=== PATIENT | female | born 1930 | race Caucasian/White ===

== ENCOUNTER → 2016-12-23 | Outpatient (CLI) | payer MEDICARE, BC ==
[2016-12-23 10:16] LABS: CHOLESTEROL 171.23 mg/dL (0-200); Direct HDL 65 mg/dL (>40); TRIGLYCERIDES 96 mg/dL (<150)
[2016-12-23 10:27] LABS: DIRECT LDL 73 mg/dL (<100)
== END ==
LOC: OD 08:40
PROVIDERS: ATTEND Family Medicine Geriatric Medicine
DX: E78.5 Hyperlipidemia, unspecified (principal); E53.9 Vitamin B deficiency, unspecified
CPT/HCPCS: 36415; 80061; 82306; 82607

== ENCOUNTER → 2017-06-27 | Outpatient (CLI) | payer MEDICARE, BC ==
[2017-06-27 10:06] LABS: ABSOLUTE EOSINOPHILS # (AUTO) 0.2 10^3/uL (0.0-0.6); ABSOLUTE LYMPHOCYTES (AUTO) 1.3 10^3/uL (0.5-4.7); ABSOLUTE MONOCYTES (AUTO) 0.5 10^3/uL (0.1-1.4); ABSOLUTE NEUT (AUTO) 3.2 10^3/uL (1.7-8.2); BASOPHILS % (AUTO) 0.7 % (0-2); EOSINOPHILS % (AUTO) 3.8 % (0-6); HEMATOCRIT 43.2 % (36.0-47.0); HEMOGLOBIN 14.2 g/dL (12.0-15.5); HGB HCT DIFFERENCE -0.6; LYMPHOCYTES % (AUTO) 25.3 % (13-45); MEAN CORPUSCULAR HEMOGLOBIN 32.2 pg (27.0-33.4); MEAN CORPUSCULAR HGB CONC 32.8 g/dL (32.0-36.0); MEAN CORPUSCULAR VOLUME 98 fl (80-97); MONOCYTES % (AUTO) 8.8 % (3-13); RED BLOOD COUNT 4.42 10^6/uL (3.72-5.28); RED CELL DISTRIBUTION WIDTH 14.3 % (11.5-14.0); SEGMENTED NEUTROPHILS % (AUTO) 61.4 % (42-78); WHITE BLOOD COUNT 5.2 10^3/uL (4.0-10.5)
[2017-06-27 10:39] LABS: ALANINE AMINOTRANSFERASE 19 U/L (9-52); ALBUMIN 3.8 g/dL (3.5-5.0); ALKALINE PHOSPHATASE 72 U/L (38-126); ANION GAP 9 (5-19); ASPARTATE AMINO TRANSFERASE 21 U/L (14-36); BILIRUBIN,DIRECT 0.3 mg/dL (0.0-0.4); BILIRUBIN,TOTAL 0.5 mg/dL (0.2-1.3); BLOOD UREA NITROGEN 15 mg/dL (7-20); CALCIUM 9.4 mg/dL (8.4-10.2); CARBON DIOXIDE 30 mmol/L (22-30); CHLORIDE 105 mmol/L (98-107); CREATININE RESULT 0.83 mg/dL (0.52-1.25); GLUCOSE 90 mg/dL (75-110); POTASSIUM 4.7 mmol/L (3.6-5.0); SODIUM 143.9 mmol/L (137-145); TOTAL PROTEIN 6.4 g/dL (6.3-8.2)
== END ==
LOC: OD 08:49
PROVIDERS: ATTEND Family Medicine Geriatric Medicine
DX: E78.5 Hyperlipidemia, unspecified (principal); I10 Essential (primary) hypertension; J44.9 Chronic obstructive pulmonary disease, unspecified; E55.9 Vitamin D deficiency, unspecified; Z79.899 Other long term (current) drug therapy
CPT/HCPCS: 36415; 80053; 85025

== ENCOUNTER 2017-12-06 07:09 | Day surgery (SDC) | payer MEDICARE, BC ==
[2017-12-06] MEDS ORDERED: ONDANSETRON HCL INJ/PF 4 MG/2 ML SDV ONE (07:16)
[2017-12-06] MEDS ORDERED: GLYCOPYRROLATE INJ 0.4 MG/2 ML VIAL ONE (07:16)
[2017-12-06] MEDS ORDERED: FLUMAZENIL INJ 0.5 MG/5 ML VIAL ONE (07:17)
[2017-12-06] MEDS ORDERED: NALOXONE HCL INJ/PF 0.4 MG/1 ML SDV ONE (07:17)
[2017-12-06] MEDS ORDERED: EPINEPHRINE INJ 1 MG/10 ML DISP.SYRIN ONE (07:17)
[2017-12-06] MEDS ORDERED: GLUCAGON,HUMAN RECOMB 1 MG INJ ONE (07:17)
[2017-12-06 07:23] LABS: HEMATOCRIT 42.7 % (36.0-47.0); HEMOGLOBIN 14.4 g/dL (12.0-15.5); MEAN CORPUSCULAR HEMOGLOBIN 32.2 pg (27.0-33.4); MEAN CORPUSCULAR HGB CONC 33.7 g/dL (32.0-36.0); MEAN CORPUSCULAR VOLUME 96 fl (80-97); PLATELET COUNT 168 10^3/uL (150-450); RED BLOOD COUNT 4.46 10^6/uL (3.72-5.28); RED CELL DISTRIBUTION WIDTH 14.4 % (11.5-14.0)
[2017-12-06 07:43] LABS: ANION GAP 12 (5-19); BLOOD UREA NITROGEN 11 mg/dL (7-20); CALCIUM 8.6 mg/dL (8.4-10.2); CARBON DIOXIDE 25 mmol/L (22-30); CHLORIDE 105 mmol/L (98-107); GLUCOSE 93 mg/dL (75-110); POTASSIUM 4.2 mmol/L (3.6-5.0); SODIUM 141.8 mmol/L (137-145)
[2017-12-06] MEDS: MIDAZOLAM 2 MG/2 ML INJ ONE ×2 (09:40→09:45)
[2017-12-06] MEDS: FENTANYL CITRATE INJ/PF 100 MCG/2 ML AMPUL ONE ×2 (09:42→09:56)
--- NOTE | 2017-12-06 10:20 | Operative Report ---
Operative Report DATE OF SURGERY: 12/06/17 PREOPERATIVE DIAGNOSIS: Blood per rectum POSTOPERATIVE DIAGNOSIS: Diverticulosis of the colon. Internal hemorrhoids. OPERATION: Colonoscopy SURGEON: JOSE F MALLORY ANESTHESIA: GA TISSUE REMOVED OR ALTERED: None COMPLICATIONS: None ESTIMATED BLOOD LOSS: None INTRAOPERATIVE FINDINGS: Multiple large diverticuli throughout the colon. Especially the left colon. Prolapsing internal hemorrhoid. Very lax anal sphincter tone with evidence of partial rectal prolapse. PROCEDURE: Informed consent was obtained. Patient was brought to the endoscopy suite. IV sedation with Versed and fentanyl was administered. Digital rectal exam revealed no palpable perianal masses. However she had a very lax anal sphincter tone with a partial prolapse of her rectum along with a prolapsing internal hemorrhoid with no stigmata recent bleeding. Endoscope was passed via the patient's anus it was fed to the cecum. The bowel prep was good. Visualization was good. Patient had multiple large diverticuli throughout the colon especially the sigmoid and the left colon. Otherwise the colon appeared normal. The cecum, right colon, transverse colon, descending colon, sigmoid colon and the rectum had no polyps and no masses. Patient tolerated procedure well with no apparent complications. Assessment: Prolapsing internal hemorrhoid. Along with very lax anal sphincter tone with evidence of partial rectal prolapse. I will follow-up with the patient and make a referral to colorectal surgery for their input for treatment.
--- NOTE | 2017-12-06 10:21 | PDOC DISCHARGE SUMMARY ---
Discharge Summary (SDC) - Discharge Final Diagnosis: Internal hemorrhoids. Diverticulosis of the colon. Date of Surgery: 12/06/17 Discharge Date: 12/06/17 Condition: Good Treatment or Instructions: Colonoscopy. May discharge patient home when met discharge criteria. Follow- up with me next week. Referrals: KISHA FORBES MD [Primary Care Provider] - Discharge Diet: As Tolerated Discharge Activity: Activity As Tolerated Report the Following to Your Physician Immediately: Increase in Pain, Fever over 101 Degrees, Unusual Bleeding
[2017-12-06 11:11] VITALS: BP 142/60
== END 2017-12-06 11:05 | disposition home or self-care (01) ==
LOC: END 07:09
PROVIDERS: ATTEND Surgery
PROC: 0DJD8ZZ Inspection of Lower Intestinal Tract, Via Natural or Artificial Opening Endoscopic (ICD-10-PCS; principal; 2017-12-06 08:45)
DX: K64.8 Other hemorrhoids (principal); K57.30 Diverticulosis of large intestine without perforation or abscess without bleeding; K62.5 Hemorrhage of anus and rectum; K62.89 Other specified diseases of anus and rectum; I10 Essential (primary) hypertension; E78.00 Pure hypercholesterolemia, unspecified; Z79.899 Other long term (current) drug therapy
CPT/HCPCS: 45378; 36415; 85027; 80048; J2250; J3010; J0171; J1610; J2310; J2405; J3490

== ENCOUNTER → 2017-12-23 | Outpatient (CLI) | payer MEDICARE, BC ==
[2017-12-23 09:13] LABS: ABSOLUTE EOSINOPHILS # (AUTO) 0.1 10^3/uL (0.0-0.6); ABSOLUTE LYMPHOCYTES (AUTO) 1.3 10^3/uL (0.5-4.7); ABSOLUTE MONOCYTES (AUTO) 0.6 10^3/uL (0.1-1.4); BASOPHILS % (AUTO) 0.5 % (0-2); EOSINOPHILS % (AUTO) 2.4 % (0-6); HEMATOCRIT 44.9 % (36.0-47.0); HEMOGLOBIN 14.9 g/dL (12.0-15.5); LYMPHOCYTES % (AUTO) 21.3 % (13-45); MEAN CORPUSCULAR HEMOGLOBIN 31.9 pg (27.0-33.4); MEAN CORPUSCULAR HGB CONC 33.1 g/dL (32.0-36.0); MEAN CORPUSCULAR VOLUME 96 fl (80-97); MONOCYTES % (AUTO) 9.6 % (3-13); PLATELET COUNT 156 10^3/uL (150-450); RED BLOOD COUNT 4.67 10^6/uL (3.72-5.28); RED CELL DISTRIBUTION WIDTH 14.6 % (11.5-14.0); SEGMENTED NEUTROPHILS % (AUTO) 66.2 % (42-78); TOTAL CELLS COUNTED % (AUTO) 100 %
[2017-12-23 09:34] LABS: ALANINE AMINOTRANSFERASE 28 U/L (9-52); ALBUMIN 3.9 g/dL (3.5-5.0); ALKALINE PHOSPHATASE 71 U/L (38-126); ANION GAP 9 (5-19); ASPARTATE AMINO TRANSFERASE 22 U/L (14-36); BILIRUBIN,DIRECT 0.3 mg/dL (0.0-0.4); BILIRUBIN,TOTAL 0.3 mg/dL (0.2-1.3); BLOOD UREA NITROGEN 15 mg/dL (7-20); CALCIUM 9.6 mg/dL (8.4-10.2); CARBON DIOXIDE 28 mmol/L (22-30); CHLORIDE 110 mmol/L (98-107); CHOLESTEROL 155.76 mg/dL (0-200); GLUCOSE 92 mg/dL (75-110); SODIUM 146.7 mmol/L (137-145); TOTAL PROTEIN 6.7 g/dL (6.3-8.2); TRIGLYCERIDES 90 mg/dL (<150)
[2017-12-23 09:36] LABS: POTASSIUM 5.3 mmol/L (3.6-5.0)
[2017-12-23 09:45] LABS: DIRECT LDL 71 mg/dL (<100)
== END ==
LOC: OD 08:40
PROVIDERS: ATTEND Family Medicine Geriatric Medicine
DX: I10 Essential (primary) hypertension (principal); E78.5 Hyperlipidemia, unspecified; J44.9 Chronic obstructive pulmonary disease, unspecified; Z79.899 Other long term (current) drug therapy
CPT/HCPCS: 36415; 80053; 80061; 85025

== ENCOUNTER 2018-05-09 15:48 | Inpatient (IN) | payer MEDICARE, BC ==
[2018-05-09] MEDS ORDERED: IPRATROPIUM/ALBUTEROL 0.5-2.5 MG/3 ML AMPUL NEB ONE ×2 (16:52→18:34)
--- NOTE | 2018-05-09 17:05 | ER Document Report ---
ED Medical Screen (RME) - General Chief Complaint: Congestion Stated Complaint: COLD/FLU SYMPTOMS DIRECT ADMIT Time Seen by Provider: 05/09/18 16:50 Notes: Patient is here because her oxygen level was low at her doctor's office today. Her doctor recorded oxygen levels of 86-87%. Patient is not routinely on oxygen. She has had a cough for the past week or so. It started out with clear phlegm that went to green that went to brown phlegm. She is not on any oxygen at home. Does not use nebulizers nor any history of COPD or asthma. Has not had any chest pain. No fevers. TRAVEL OUTSIDE OF THE [place] IN LAST 30 DAYS: No - Related Data Allergies/Adverse Reactions: No Known Allergies Allergy (Verified 05/09/18 15:49) Past Medical History - Social History Chew tobacco use (# tins/day): No Frequency of alcohol use: None Drug Abuse: None - Past Medical History Cardiac Medical History: Reports: Hx Hypercholesterolemia, Hx Hypertension Denies: Hx Coronary Artery Disease, Hx Heart Attack Pulmonary Medical History: Reports: Hx COPD, Hx Pneumonia Denies: Hx Asthma, Hx Bronchitis, Hx Tuberculosis Neurological Medical History: Denies: Hx Cerebrovascular Accident, Hx Seizures Renal/ Medical History: Denies: Hx Peritoneal Dialysis Musculoskeltal Medical History: Reports Hx Arthritis - general Psychiatric Medical History: Denies: Hx Depression Past Surgical History: Reports: Hx Appendectomy, Hx Section - x2 - Immunizations Hx Diphtheria, Pertussis, Tetanus Vaccination: Yes Influenza Administration Date for 07/2017 - 12/2017 Season: 08/17/17 Physical Exam - Vital signs Vitals: Temp Pulse Resp BP Pulse Ox 98.4 F 90 24 H 147/75 H 90 L 05/09/18 16:09 05/09/18 16:09 05/09/18 16:09 05/09/18 16:09 05/09/18 16:09 Course - Vital Signs Vital signs: Temp Pulse Resp BP Pulse Ox 98.4 F 90 24 H 147/75 H 90 L 05/09/18 16:09 05/09/18 16:09 05/09/18 16:09 05/09/18 16:09 05/09/18 16:09 Doctor's Discharge - Discharge Referrals: REGIS MOLINA MD [Primary Care Provider] - Follow up as needed
--- NOTE | 2018-05-09 17:29 | RADIOLOGY REPORT (SQ) ---
EXAM DESCRIPTION: CHEST 2 VIEWS COMPLETED DATE/TIME: 05/09/2018 5:05 pm REASON FOR STUDY: Shortness of breath COMPARISON: 12/17/2013 NUMBER OF VIEWS: One view. TECHNIQUE: Single frontal radiographic view of the chest acquired. LIMITATIONS: None. FINDINGS: LUNGS AND PLEURA: No acute opacities, masses or pneumothorax. No pleural effusion. Simila r chronic interstitial changes and emphysema. MEDIASTINUM AND HILAR STRUCTURES: Stable. HEART AND VASCULAR STRUCTURES: Heart normal in size. Normal vasculature. BONES: No acute findings. HARDWARE: None in the chest. OTHER: No other significant finding. IMPRESSION: NO ACUTE RADIOGRAPHIC FINDING IN THE CHEST. TECHNICAL DOCUMENTATION: JOB ID: [id number] [id number] 2010 [employer]- All Rights Reserved Reading location - IP/workstation name: [employer]
[2018-05-09 17:35] LABS: ABSOLUTE EOSINOPHILS # (AUTO) 0.1 10^3/uL (0.0-0.6); ABSOLUTE LYMPHOCYTES (AUTO) 1.5 10^3/uL (0.5-4.7); ABSOLUTE MONOCYTES (AUTO) 1.1 10^3/uL (0.1-1.4); ABSOLUTE NEUT (AUTO) 7.5 10^3/uL (1.7-8.2); BASOPHILS % (AUTO) 0.3 % (0-2); HEMATOCRIT 45.1 % (36.0-47.0); HEMOGLOBIN 15.1 g/dL (12.0-15.5); LYMPHOCYTES % (AUTO) 14.7 % (13-45); MEAN CORPUSCULAR HEMOGLOBIN 31.6 pg (27.0-33.4); MEAN CORPUSCULAR HGB CONC 33.4 g/dL (32.0-36.0); MEAN CORPUSCULAR VOLUME 95 fl (80-97); MONOCYTES % (AUTO) 10.4 % (3-13); PLATELET COUNT 160 10^3/uL (150-450); RED BLOOD COUNT 4.77 10^6/uL (3.72-5.28); RED CELL DISTRIBUTION WIDTH 14.2 % (11.5-14.0); SEGMENTED NEUTROPHILS % (AUTO) 73.6 % (42-78); TOTAL CELLS COUNTED % (AUTO) 100 %; WHITE BLOOD COUNT 10.2 10^3/uL (4.0-10.5)
[2018-05-09 17:45] LABS: APPEARANCE,URINE CLOUDY; BILIRUBIN,URINE NEGATIVE (NEGATIVE); COLOR,URINE YELLOW; GLUCOSE, URINE NEGATIVE (NEGATIVE); KETONES,URINE TRACE mg/dL (NEGATIVE); LEUKOCYTE ESTERASE,URINE LARGE (NEGATIVE); NITRITE,URINE NEGATIVE (NEGATIVE); PROTEIN,URINE NEGATIVE (NEGATIVE); URINE SPECIFIC GRAVITY 1.013; UROBILINOGEN,URINE NEGATIVE mg/dL (<2.0)
[2018-05-09 18:05] LABS: ALANINE AMINOTRANSFERASE 21 U/L (9-52); ALBUMIN 3.9 g/dL (3.5-5.0); ALKALINE PHOSPHATASE 97 U/L (38-126); ANION GAP 14 (5-19); ASPARTATE AMINO TRANSFERASE 28 U/L (14-36); BILIRUBIN,DIRECT 0.4 mg/dL (0.0-0.4); BILIRUBIN,TOTAL 0.7 mg/dL (0.2-1.3); BLOOD UREA NITROGEN 23 mg/dL (7-20); CARBON DIOXIDE 23 mmol/L (22-30); CHLORIDE 105 mmol/L (98-107); GLUCOSE 96 mg/dL (75-110); POTASSIUM 4.2 mmol/L (3.6-5.0); SODIUM 142.1 mmol/L (137-145); TOTAL PROTEIN 7.7 g/dL (6.3-8.2)
[2018-05-09 18:17] LABS: CREATINE KINASE MB 1.18 ng/mL (<4.55); NT PRO BNP 177 pg/mL (<450)
[2018-05-09 18:18] LABS: TROPONIN I < 0.012 ng/mL
[2018-05-09] MEDS ORDERED: METHYLPREDNISOLONE INJ 125 MG/2 ML SDV IM ONE (18:34)
[2018-05-09] MEDS ORDERED: ALBUTEROL SULFATE 0.083% NEB 2.5 MG/3 ML AMPUL NEB ONE (18:34)
--- NOTE | 2018-05-09 18:38 | ER Document Report ---
ED Respiratory Problem - General Mode of Arrival: Ambulatory Information source: Patient TRAVEL OUTSIDE OF THE [place] IN LAST 30 DAYS: No <SHEY BRYSON - Last Filed: 05/09/18 18:50> <MIRIAM REYES - Last Filed: 05/09/18 20:45> - General Chief Complaint: Congestion Stated Complaint: COLD/FLU SYMPTOMS DIRECT ADMIT Time Seen by Provider: 05/09/18 16:50 Notes: Patient is an 87 year old female with a history of COPD, high cholesterol, HTN was sent to the emergency from her PCP's, Dr. Strong, office for low oxygen rate. Patient states she was seen there and found to haven an oxygen rate of 86 percent. Patient was given a DuoNeb which brought her oxygen rate to 87 percent and was sent to the emergency department. Patient states she has had a productive cough with sputum for the last 2 weeks. She also complains of decreased appetite. She denies chest pain, fevers, hemoptysis, or recent steroid or antibiotic use. Patient states she uses an inhaler twice daily. (SHEY BRYSON) - Related Data Allergies/Adverse Reactions: No Known Allergies Allergy (Verified 05/09/18 15:49) Past Medical History - General Information source: Patient - Social History Smoking Status: Former Smoker Chew tobacco use (# tins/day): No Frequency of alcohol use: None Drug Abuse: None Family History: Reviewed & Not Pertinent Patient has suicidal ideation: No Patient has homicidal ideation: No - Past Medical History Cardiac Medical History: Reports: Hx Hypercholesterolemia, Hx Hypertension Pulmonary Medical History: Reports: Hx COPD, Hx Pneumonia Musculoskeletal Medical History: Reports Hx Arthritis - general Past Surgical History: Reports: Hx Appendectomy, Hx Section - x2 - Immunizations Hx Diphtheria, Pertussis, Tetanus Vaccination: Yes Hx Pneumococcal Vaccination: 10/17/11 <SHEY BRYSON - Last Filed: 05/09/18 18:50> Review of Systems - Review of Systems Constitutional: No symptoms reported. denies: Fever EENT: No symptoms reported Cardiovascular: No symptoms reported. denies: Chest pain Respiratory: See HPI, Cough, Sputum Gastrointestinal: See HPI, Poor appetite Genitourinary: No symptoms reported Female Genitourinary: No symptoms reported Musculoskeletal: No symptoms reported Skin: No symptoms reported Hematologic/Lymphatic: No symptoms reported Neurological/Psychological: No symptoms reported -: Yes All other systems reviewed and negative <SHEY BRYSON - Last Filed: 05/09/18 18:50> Physical Exam <SHEY BRYSON - Last Filed: 05/09/18 18:50> - Vital signs Interpretation: Hypoxic, Tachypneic <MIRIAM REYES - Last Filed: 05/09/18 20:45> - Vital signs Vitals: Temp Pulse Resp BP Pulse Ox 98.4 F 90 24 H 147/75 H 90 L 05/09/18 16:09 05/09/18 16:09 05/09/18 16:09 05/09/18 16:09 05/09/18 16:09 - Notes Notes: GENERAL: Alert, interacts well. Mild respiratory distress. HEAD: Normocephalic, atraumatic. EYES: Pupils equal, round, and reactive to light. Extraocular movements intact. ENT: Oral mucosa moist, tongue midline. NECK: Full range of motion. Supple. Trachea midline. LUNGS: Mild respiratory distress. Mild tachypnea. Diffuse expiratory wheezes, inspiratory rhonchi. Wet cough. HEART: Regular rate and rhythm. No murmurs, gallops, or rubs. ABDOMEN: Soft, non-tender. Non-distended. Bowel sounds present in all 4 quadrants. EXTREMITIES: Moves all 4 extremities spontaneously. No edema, radial and dorsalis pedis pulses 2/4 bilaterally. No cyanosis. NEUROLOGICAL: Alert and oriented x3. Normal speech. PSYCH: Normal affect, normal mood. SKIN: Warm, dry, normal turgor. No rashes or lesions noted. (SHEY BRYSON) Course - Laboratory Result Diagrams: 05/09/18 17:15 05/09/18 17:15 <SHEY BRYSON - Last Filed: 05/09/18 18:50> - Laboratory Result Diagrams: 05/09/18 17:15 05/09/18 17:15 <MIRIAM REYES - Last Filed: 05/09/18 20:45> - Re-evaluation Re-evalutation: 05/09/18 20:22 CBC unremarkable, CMP shows slightly elevated BUN otherwise unremarkable, cardiac enzymes negative, urinalysis shows trace ketones and large leukocyte esterase but she has no urinary tract symptoms infection symptoms right now symptoms of urinary tract infection at this time. Chest x-ray is negative. Patient was given 3 breathing treatments and IV steroids, she is still quite wheezy on reexamination, she was ambulated through the emergency department and after approximately 15 feet her oxygen saturation went down to 88% on room air. Due to this the patient will be admitted to the hospitalist service, she was discussed with Dr. Kay who accepted the patient to her service inpatient status on telemetry (MIRIAM REYES) - Vital Signs Vital signs: Temp Pulse Resp BP Pulse Ox 98.4 F 90 24 H 147/75 H 90 L 05/09/18 16:09 05/09/18 16:09 05/09/18 16:09 05/09/18 16:09 05/09/18 16:09 - Laboratory Laboratory results interpreted by me: 05/09/18 05/09/18 05/09/18 17:15 17:15 17:15 RDW 14.2 H BUN 23 H Est GFR (Non-Af Amer) 58 L Urine Ketones TRACE H Urine Blood SMALL H Ur Leukocyte Esterase LARGE H Discharge <SHEY BRYSON - Last Filed: 05/09/18 18:50> - Discharge Admitting Provider: Hospitalist - Rahul Unit Admitted: Telemetry <MIRIAM REYES - Last Filed: 05/09/18 20:45> - Discharge Clinical Impression: COPD with acute exacerbation, Hypoxia Condition: Fair Disposition: ADMITTED INPATIENT Referrals: REGIS MOLINA MD [Primary Care Provider] - Follow up as needed Scribe Attestation: 05/09/18 20:45 I personally performed the services described in the documentation, reviewed and edited the documentation which was dictated to the scribe in my presence, and it accurately records my words and actions. (MIRIAM REYES) Scribe Documentation - Scribe Written by Jairo:: aJiro Valentin, 05/09/2018 18:46 acting as scribe for :: Bryson <SHEY BRYSON - Last Filed: 05/09/18 18:50>
[2018-05-09] MEDS ORDERED: ACETAMINOPHEN 650 MG SUPP.RECT PR PRN (20:51)
[2018-05-09] MEDS ORDERED: PROMETHAZINE HCL INJ 25 MG/1 ML VIAL IV PRN (20:51)
[2018-05-09] MEDS ORDERED: NORMAL SALINE 1000 ML 1,000 ML IV PRN (20:51)
[2018-05-09] MEDS ORDERED: MAG HYDROX/AL HYDROX/SIMETH SUSP 30 ML UDCUP PO PRN (20:51)
[2018-05-09] MEDS ORDERED: IPRATROPIUM/ALBUTEROL 0.5-2.5 MG/3 ML AMPUL NEB PRN (20:51)
--- NOTE | 2018-05-09 21:31 | PDOC H&P ---
History of Present Illness Admission Date/PCP: 05/09/18 20:54 REGIS MOLINA MD Patient complains of: Shortness of breath History of Present Illness: RADHA WASHINGTON is a 87 year old female with history of COPD not on home oxygen who has been feeling sick for 1 day, as per for 1 week, she does not report to me shortness of breath but he states that she was been having cough with sputum that she swallows, chest congestion and wheezing that has been progressing. Denies sore throat, runny nose, fever, chills, nausea, vomiting, abdominal pain, diarrhea or urinary symptoms. Patient has been feeling sick so she went to her primary care physician today who recalled that her oxygen saturation and was 8687% on room air. Complains of a weird sensation on her head. Patient uses inhaler at home twice in the morning and twice at night, denies using extra doses the last few days. Emergency department given nebulizer treatments and 125 mg of Solu-Medrol Past Medical History Cardiac Medical History: Reports: Hyperlipidema, Hypertension Denies: Coronary Artery Disease, Myocardial Infarction Pulmonary Medical History: Reports: Chronic Obstructive Pulmonary Disease (COPD) , Pneumonia Denies: Asthma, Bronchitis, Tuberculosis Neurological Medical History: Denies: Seizures Neurological History Note: Memory problems Musculoskeltal Medical History: Reports: Arthritis - general Psychiatric Medical History: Denies: Depression Hematology: Denies: Anemia Past Surgical History Past Surgical History: Reports: Appendectomy, Section - x2 Social History Lives with: Family Smoking Status: Former Smoker - Tells me she has smoked very few cigarettes and quit when she was 31 years old Frequency of Alcohol Use: None Hx Recreational Drug Use: No Hx Prescription Drug Abuse: No Family History Family History: Reviewed & Not Pertinent Parental Family History Reviewed: No Children Family History Reviewed: NA Sibling(s) Family History Reviewed.: NA Medication/Allergy Home Medications: Simvastatin 20 mg PO DAILY #30 tablet 12/19/13 Budesonide/Formoterol Fumarate [Symbicort 160-4.5 Mcg Inhaler] 10.2 gm IH DAILY 12/05/17 Cyanocobalamin (Vitamin B-12) [Vitamin B12] 2,500 mcg PO DAILY 12/05/17 Memantine HCl 10 mg PO BID 12/05/17 Losartan Potassium 100 mg PO DAILY 12/06/17 Allergies/Adverse Reactions: No Known Allergies Allergy (Verified 05/09/18 15:49) Review of Systems Review of Systems: As outlined in the HPI, all others negative Physical Exam Vital Signs: Temp Pulse Resp BP Pulse Ox 98.4 F 90 24 H 147/75 H 90 L 05/09/18 16:09 05/09/18 16:09 05/09/18 16:09 05/09/18 16:09 05/09/18 16:09 Additional comments: General appearance: Elderly, well-developed, well-nourished, alert and cooperative, and appears to be in no acute distress Head: Normocephalic Eyes: PEERL, EOMI, vision is grossly intact. Ears: External auditory canal and tympanic membranes clear, hearing grossly intact. Nose: No nasal discharge. Throat: Oral cavity and pharynx normal. No inflammation, swelling, exudate or lesions. Neck: Neck supple, nontender without lymphadenopathy, masses or thyromegaly. Cardiac: Normal S1 and S2. No S3, S4 or murmurs. Rhythm is regular. There is no peripheral edema, cyanosis or pallor. Extremities are warm and well perfused. Capillary refill is less than 2 seconds. No carotid bruits. Lungs: Bilateral decreased breath sounds, bibasilar crackles with expiratory wheezing and mild rhonchi. Not using accessory muscles. Abdomen: Positive bowel sounds. Soft. Nondistended, nontender. No guarding or rebound. No masses. No hepatosplenomegaly Extremities: No significant deformity or joint abnormality. No edema. Peripheral pulses intact. No varicosities. Neurological: Cranial nerves II through XII grossly intact. Strength and sensation symmetric and intact throughout. Reflexes 2+ throughout. Skin: Skin normal color, texture and turgor with no lesions or eruptions, warm and dry. Psychiatric: The mental examination revealed the patient was oriented to person , place, and time. The patient was able to demonstrate good judgment on recent , without hallucinations, abnormal affect or abnormal behaviors. Results Laboratory Results: 05/09/18 05/09/18 05/09/18 17:15 17:15 17:15 WBC 10.2 Hgb 15.1 Hct 45.1 MCV 95 MCH 31.6 MCHC 33.4 RDW 14.2 H Plt Count 160 Seg Neutrophils % 73.6 Lymphocytes % 14.7 Monocytes % 10.4 Eosinophils % 1.0 Basophils % 0.3 Absolute Neutrophils 7.5 Absolute Lymphocytes 1.5 Absolute Monocytes 1.1 Absolute Eosinophils 0.1 Absolute Basophils 0.0 Sodium 142.1 Potassium 4.2 Chloride 105 Carbon Dioxide 23 Anion Gap 14 BUN 23 H Creatinine 0.92 Est GFR ( Amer) > 60 Est GFR (Non-Af Amer) 58 L Glucose 96 Calcium 9.0 Total Bilirubin 0.7 Direct Bilirubin 0.4 AST 28 ALT 21 Alkaline Phosphatase 97 Total Protein 7.7 Albumin 3.9 Urine Color YELLOW Urine Appearance CLOUDY Urine pH 5.0 Ur Specific [place] 1.013 Urine Protein NEGATIVE Urine Glucose (UA) NEGATIVE Urine Ketones TRACE H Urine Blood SMALL H Urine Nitrite NEGATIVE Urine Bilirubin NEGATIVE Urine Urobilinogen NEGATIVE Ur Leukocyte Esterase LARGE H Urine WBC (Auto) >182 Urine RBC (Auto) 3 Urine Bacteria (Auto) TRACE Squamous Epi Cells Auto 6 U Non-Squamous Epis Auto 1 Urine Ascorbic Acid NEGATIVE Impressions: Chest X-Ray 05/09/18 16:53 IMPRESSION: NO ACUTE RADIOGRAPHIC FINDING IN THE CHEST. Assessment & Plan - Diagnosis (1) Acute respiratory failure with hypoxia Is this a current diagnosis for this admission?: Yes Plan: Patient arrived to her PCP her oxygen saturation was 8687% on room air, now has improved after 2l oxygen initiated. Patient is not on respiratory distress. Chest x-ray with no infiltrates (2) COPD with acute exacerbation Is this a current diagnosis for this admission?: Yes Plan: Patient with progressive respiratory symptoms and was seen by her PCP with hypoxic respiratory failure. We will treat the patient COPD exacerbation. IV azithromycin, IV steroids, RT consultation, nebulizer treatments as needed, close respiratory monitoring. (3) Benign essential hypertension Is this a current diagnosis for this admission?: Yes Plan: decently controlled, continue with home antihypertensive medications - Time Time Spent: 30 to 50 Minutes - Inpatient Certification Based on my medical assessment, after consideration of the patient's comorbidities, presenting symptoms, or acuity I expect that the services needed warrant INPATIENT care.: Yes I certify that my determination is in accordance with my understanding of Medicare's requirements for reasonable and necessary INPATIENT services [42 CFR 412.3e].: Yes Medical Necessity: Need For Continuous Telemetry Monitoring, Risk of Complication if Not Cared For in Hospital
[2018-05-09] MEDS: METHYLPREDNISOLONE INJ 125 MG/2 ML SDV IV SCH (22:53)
[2018-05-10] MEDS: METHYLPREDNISOLONE INJ 125 MG/2 ML SDV IV SCH ×3 (05:38→21:54)
[2018-05-10 05:57] LABS: ABSOLUTE LYMPHOCYTES (AUTO) 0.6 10^3/uL (0.5-4.7); ABSOLUTE MONOCYTES (AUTO) 0.2 10^3/uL (0.1-1.4); ABSOLUTE NEUT (AUTO) 6.6 10^3/uL (1.7-8.2); BASOPHILS % (AUTO) 0.1 % (0-2); HEMATOCRIT 40.2 % (36.0-47.0); HEMOGLOBIN 13.7 g/dL (12.0-15.5); LYMPHOCYTES % (AUTO) 7.8 % (13-45); MEAN CORPUSCULAR HEMOGLOBIN 32.1 pg (27.0-33.4); MEAN CORPUSCULAR HGB CONC 34.1 g/dL (32.0-36.0); MEAN CORPUSCULAR VOLUME 94 fl (80-97); MONOCYTES % (AUTO) 2.5 % (3-13); PLATELET COUNT 144 10^3/uL (150-450); RED BLOOD COUNT 4.28 10^6/uL (3.72-5.28); RED CELL DISTRIBUTION WIDTH 13.6 % (11.5-14.0); SEGMENTED NEUTROPHILS % (AUTO) 89.6 % (42-78); TOTAL CELLS COUNTED % (AUTO) 100 %; WHITE BLOOD COUNT 7.3 10^3/uL (4.0-10.5)
[2018-05-10 06:20] LABS: ANION GAP 12 (5-19); BLOOD UREA NITROGEN 19 mg/dL (7-20); CALCIUM 8.7 mg/dL (8.4-10.2); CARBON DIOXIDE 21 mmol/L (22-30); CHLORIDE 110 mmol/L (98-107); GLUCOSE 168 mg/dL (75-110); PHOSPHORUS 2.7 mg/dL (2.5-4.5); POTASSIUM 4.3 mmol/L (3.6-5.0); SODIUM 142.5 mmol/L (137-145)
[2018-05-10 07:30] LABS: ARTERIAL BLOOD BASE EXCESS -1.9 mmol/L; ARTERIAL BLOOD H2CO3 1.12 mmol/L (1.05-1.35); ARTERIAL BLOOD HCO3 22.4 mmol/L (20-26); ARTERIAL BLOOD O2 SATURATION 89.6 % (94-98); ARTERIAL BLOOD PCO2 37.1 mmHg (35-45); ARTERIAL BLOOD PO2 56.6 mmHg (80-100); ARTERIAL BLOOD TOTAL CO2 23.6 mmol/L (21-25)
[2018-05-10 07:40] LABS: ARTERIAL BLOOD FIO2 ROOM AIR
[2018-05-10] MEDS: ENOXAPARIN SODIUM INJ 30 MG/0.3 ML DISP.SYRIN SUBCUT SCH (09:57)
[2018-05-10] MEDS: AZITHROMYCIN 500 MG in DEXTROSE 5%-WATER 250 ML IV SCH (09:59)
--- NOTE | 2018-05-10 11:47 | PDOC PROGRESS REPORT ---
Subjective Progress Note for:: 05/10/18 Subjective:: Patient is seen today she was in the restroom she had a bowel movement she is still short of breath on exertion, cough intermittent chest tightness with wheezing denies any fever or chills. Case was discussed in detail with at the bedside. Reason For Visit: COPD EXACERBATION Physical Exam Vital Signs: Temp Pulse Resp BP Pulse Ox 98.4 F 88 20 140/71 H 94 05/10/18 07:30 05/10/18 07:30 05/10/18 07:30 05/10/18 07:30 05/10/18 07:30 Intake & Output 05/09/18 05/10/18 05/11/18 06:59 06:59 06:59 Intake Total 534 Balance 534 Weight 72.9 kg General appearance: PRESENT: no acute distress Head exam: PRESENT: atraumatic, normocephalic Eye exam: PRESENT: conjunctival injection Ear exam: PRESENT: normal external ear exam Mouth exam: PRESENT: moist Neck exam: PRESENT: full ROM Respiratory exam: PRESENT: prolonged expiratory phas, rhonchi, wheezes Cardiovascular exam: PRESENT: RRR Pulses: PRESENT: normal carotid pulses, normal dorsalis pedis pul GI/Abdominal exam: PRESENT: normal bowel sounds, soft. ABSENT: distended, guarding, mass, organolmegaly, rebound, tenderness Neurological exam: PRESENT: alert, awake, oriented to person, oriented to place , CN II-XII grossly intact Psychiatric exam: PRESENT: appropriate affect, normal mood. ABSENT: homicidal ideation, suicidal ideation Results Laboratory Results: 05/10/18 05:49 05/10/18 05:49 05/10/18 05/10/18 05/10/18 05:49 05:49 06:50 WBC 7.3 RBC 4.28 Hgb 13.7 Hct 40.2 MCV 94 MCH 32.1 MCHC 34.1 RDW 13.6 Plt Count 144 L Seg Neutrophils % 89.6 H Lymphocytes % 7.8 L Monocytes % 2.5 L Eosinophils % 0.0 Basophils % 0.1 Absolute Neutrophils 6.6 Absolute Lymphocytes 0.6 Absolute Monocytes 0.2 Absolute Eosinophils 0.0 Absolute Basophils 0.0 Carbonic Acid 1.12 HCO3/H2CO3 Ratio 20:1 ABG pH 7.40 ABG pCO2 37.1 ABG pO2 56.6 L ABG HCO3 22.4 ABG O2 Saturation 89.6 L ABG Base Excess -1.9 FiO2 ROOM AIR Sodium 142.5 Potassium 4.3 Chloride 110 H Carbon Dioxide 21 L Anion Gap 12 BUN 19 Creatinine 0.74 Est GFR ( Amer) > 60 Est GFR (Non-Af Amer) > 60 Glucose 168 H Calcium 8.7 Phosphorus 2.7 Magnesium 2.2 Impressions: Chest X-Ray 05/09/18 16:53 IMPRESSION: NO ACUTE RADIOGRAPHIC FINDING IN THE CHEST. Assessment & Plan - Diagnosis (1) COPD with acute exacerbation Is this a current diagnosis for this admission?: Yes Plan: Continue IV azithromycin, beta-2 agonist with nebulizer, incentive spirometry IV Solu-Medrol. (2) Benign essential hypertension Is this a current diagnosis for this admission?: Yes Plan: Continue on home antihypertensives. (3) Vascular dementia Is this a current diagnosis for this admission?: Yes Plan: Continue on Aricept patient is also receiving GI and DVT prophylaxis.
[2018-05-10] MEDS: BUDESONIDE/FORMOTEROL 160-4.5 MCG 60 PUFF/6 GM MDI IH SCH (21:53)
[2018-05-11] MEDS: METHYLPREDNISOLONE INJ 125 MG/2 ML SDV IV SCH (06:24)
[2018-05-11] MEDS: METHYLPREDNISOLONE INJ 40 MG/1 ML SDV IV SCH ×3 (09:53→21:05)
[2018-05-11] MEDS: BUDESONIDE/FORMOTEROL 160-4.5 MCG 60 PUFF/6 GM MDI IH SCH ×2 (09:53→21:04)
[2018-05-11] MEDS: CYANOCOBALAMIN (VITAMIN B-12) 1,000 MCG TABLET PO SCH (09:55)
[2018-05-11] MEDS: ENOXAPARIN SODIUM INJ 30 MG/0.3 ML DISP.SYRIN SUBCUT SCH (09:55)
[2018-05-11] MEDS: LOSARTAN POTASSIUM 50 MG TABLET PO SCH (09:55)
[2018-05-11] MEDS: AZITHROMYCIN 500 MG in DEXTROSE 5%-WATER 250 ML IV SCH (09:56)
--- NOTE | 2018-05-11 16:18 | PDOC PROGRESS REPORT ---
Subjective Progress Note for:: 05/11/18 Subjective:: Patient states to feeling better she is still short of breath doing conversation she is coughing with minimal phlegm she is afebrile no chest pain no nausea vomiting. Reason For Visit: COPD EXACERBATION Physical Exam Vital Signs: Temp Pulse Resp BP Pulse Ox 98.4 F 98 18 128/56 H 95 05/11/18 14:51 05/11/18 14:51 05/11/18 14:51 05/11/18 14:51 05/11/18 14:51 Intake & Output 05/10/18 05/11/18 05/12/18 06:59 06:59 06:59 Intake Total 534 1677 1450 Output Total 700 800 Balance 534 977 650 Weight 72.9 kg 73.2 kg General appearance: PRESENT: mild distress Head exam: PRESENT: atraumatic, normocephalic Eye exam: PRESENT: conjunctiva pink, EOMI, PERRLA. ABSENT: scleral icterus Ear exam: PRESENT: normal external ear exam Mouth exam: PRESENT: moist, tongue midline Neck exam: PRESENT: full ROM. ABSENT: carotid bruit, JVD, lymphadenopathy, thyromegaly Respiratory exam: PRESENT: wheezes Cardiovascular exam: PRESENT: RRR Pulses: PRESENT: normal carotid pulses Vascular exam: PRESENT: normal capillary refill GI/Abdominal exam: PRESENT: normal bowel sounds, soft. ABSENT: distended, guarding, mass, organolmegaly, rebound, tenderness Rectal exam: PRESENT: deferred Extremities exam: PRESENT: full ROM Musculoskeletal exam: PRESENT: ambulatory Neurological exam: PRESENT: alert, awake, oriented to person, oriented to place , oriented to situation, CN II-XII grossly intact. ABSENT: motor sensory deficit Psychiatric exam: PRESENT: appropriate affect, normal mood. ABSENT: homicidal ideation, suicidal ideation Results Laboratory Results: 05/10/18 05:49 05/10/18 05:49 Impressions: Chest X-Ray 05/09/18 16:53 IMPRESSION: NO ACUTE RADIOGRAPHIC FINDING IN THE CHEST. Assessment & Plan - Diagnosis (1) COPD with acute exacerbation Is this a current diagnosis for this admission?: Yes Plan: Decrease Solu-Medrol to 40 mg IV every 8 we will continue beta-2 agonist, IV antibiotics. (2) Benign essential hypertension Is this a current diagnosis for this admission?: Yes (3) Vascular dementia Is this a current diagnosis for this admission?: Yes
[2018-05-12] MEDS: METHYLPREDNISOLONE INJ 40 MG/1 ML SDV IV SCH ×3 (05:03→21:34)
[2018-05-12 08:24] LABS: ABSOLUTE LYMPHOCYTES (AUTO) 0.7 10^3/uL (0.5-4.7); ABSOLUTE MONOCYTES (AUTO) 0.3 10^3/uL (0.1-1.4); ABSOLUTE NEUT (AUTO) 10.8 10^3/uL (1.7-8.2); BASOPHILS % (AUTO) 0.2 % (0-2); HEMATOCRIT 42.7 % (36.0-47.0); HEMOGLOBIN 14.3 g/dL (12.0-15.5); LYMPHOCYTES % (AUTO) 5.9 % (13-45); MEAN CORPUSCULAR HEMOGLOBIN 31.5 pg (27.0-33.4); MEAN CORPUSCULAR HGB CONC 33.4 g/dL (32.0-36.0); MEAN CORPUSCULAR VOLUME 94 fl (80-97); MONOCYTES % (AUTO) 2.6 % (3-13); PLATELET COUNT 187 10^3/uL (150-450); RED BLOOD COUNT 4.53 10^6/uL (3.72-5.28); RED CELL DISTRIBUTION WIDTH 14.3 % (11.5-14.0); SEGMENTED NEUTROPHILS % (AUTO) 91.3 % (42-78); TOTAL CELLS COUNTED % (AUTO) 100 %; WHITE BLOOD COUNT 11.8 10^3/uL (4.0-10.5)
[2018-05-12 08:40] LABS: ANION GAP 10 (5-19); BLOOD UREA NITROGEN 20 mg/dL (7-20); CALCIUM 8.9 mg/dL (8.4-10.2); CARBON DIOXIDE 22 mmol/L (22-30); CHLORIDE 113 mmol/L (98-107); GLUCOSE 116 mg/dL (75-110); POTASSIUM 4.6 mmol/L (3.6-5.0); SODIUM 144.6 mmol/L (137-145)
--- NOTE | 2018-05-12 09:24 | PDOC PROGRESS REPORT ---
Subjective Progress Note for:: 05/12/18 Subjective:: Patient seen today having breakfast she is still on nasal oxygen though she is satting over 95%. She is afebrile, she looks comfortable she is still coughing with wheezing she has not done much physical exertion. She had a bowel movement yesterday she denies any other complaints. Reason For Visit: COPD EXACERBATION Physical Exam Vital Signs: Temp Pulse Resp BP Pulse Ox 97.6 F 70 16 143/67 H 95 05/12/18 07:00 05/12/18 07:00 05/12/18 07:00 05/12/18 07:00 05/12/18 07:00 Intake & Output 05/11/18 05/12/18 05/13/18 06:59 06:59 06:59 Intake Total 1677 2182 Output Total 700 1100 Balance 977 1082 Weight 73.2 kg 73.2 kg General appearance: PRESENT: no acute distress Head exam: PRESENT: atraumatic, normocephalic Eye exam: PRESENT: conjunctiva pink, EOMI, PERRLA. ABSENT: scleral icterus Ear exam: PRESENT: normal external ear exam Mouth exam: PRESENT: moist, tongue midline Respiratory exam: PRESENT: rhonchi, wheezes Cardiovascular exam: PRESENT: RRR. ABSENT: diastolic murmur, rubs, systolic murmur Pulses: PRESENT: normal dorsalis pedis pul, +2 pedal pulses bilateral Vascular exam: PRESENT: normal capillary refill GI/Abdominal exam: PRESENT: normal bowel sounds, soft. ABSENT: distended, guarding, mass, organolmegaly, rebound, tenderness Rectal exam: PRESENT: deferred Musculoskeletal exam: PRESENT: ambulatory Neurological exam: PRESENT: alert, awake, oriented to person, oriented to place , oriented to situation, reflexes normal, CN II-XII grossly intact Psychiatric exam: PRESENT: appropriate affect Skin exam: PRESENT: dry, intact, warm. ABSENT: cyanosis, rash Results Laboratory Results: 05/12/18 08:11 05/12/18 08:11 05/12/18 05/12/18 08:11 08:11 WBC 11.8 H RBC 4.53 Hgb 14.3 Hct 42.7 MCV 94 MCH 31.5 MCHC 33.4 RDW 14.3 H Plt Count 187 Seg Neutrophils % 91.3 H Lymphocytes % 5.9 L Monocytes % 2.6 L Eosinophils % 0.0 Basophils % 0.2 Absolute Neutrophils 10.8 H Absolute Lymphocytes 0.7 Absolute Monocytes 0.3 Absolute Eosinophils 0.0 Absolute Basophils 0.0 Sodium 144.6 Potassium 4.6 Chloride 113 H Carbon Dioxide 22 Anion Gap 10 BUN 20 Creatinine 0.63 Est GFR ( Amer) > 60 Est GFR (Non-Af Amer) > 60 Glucose 116 H Calcium 8.9 Impressions: Chest X-Ray 05/09/18 16:53 IMPRESSION: NO ACUTE RADIOGRAPHIC FINDING IN THE CHEST. Assessment & Plan - Diagnosis (1) COPD with acute exacerbation Is this a current diagnosis for this admission?: Yes Plan: Decrease Solu-Medrol to 40 mg IV every 8 we will continue beta-2 agonist, IV antibiotics. Advised again incentive spirometry and increase activity suspect will require another 24-48 hours before discharge (2) Benign essential hypertension Is this a current diagnosis for this admission?: Yes (3) Vascular dementia Is this a current diagnosis for this admission?: Yes (4) Acute respiratory failure with hypoxia Is this a current diagnosis for this admission?: Yes
[2018-05-12] MEDS: BUDESONIDE/FORMOTEROL 160-4.5 MCG 60 PUFF/6 GM MDI IH SCH ×2 (10:59→21:34)
[2018-05-12] MEDS: ENOXAPARIN SODIUM INJ 30 MG/0.3 ML DISP.SYRIN SUBCUT SCH (11:01)
[2018-05-12] MEDS: LOSARTAN POTASSIUM 50 MG TABLET PO SCH (11:03)
[2018-05-12] MEDS: CYANOCOBALAMIN (VITAMIN B-12) 1,000 MCG TABLET PO SCH (11:05)
[2018-05-12] MEDS: AZITHROMYCIN 500 MG in DEXTROSE 5%-WATER 250 ML IV SCH (12:36)
[2018-05-13] MEDS: METHYLPREDNISOLONE INJ 40 MG/1 ML SDV IV SCH ×3 (05:02→21:35)
[2018-05-13] MEDS: CYANOCOBALAMIN (VITAMIN B-12) 1,000 MCG TABLET PO SCH (10:38)
[2018-05-13] MEDS: LOSARTAN POTASSIUM 50 MG TABLET PO SCH (10:38)
[2018-05-13] MEDS: ENOXAPARIN SODIUM INJ 30 MG/0.3 ML DISP.SYRIN SUBCUT SCH (10:38)
[2018-05-13] MEDS: BUDESONIDE/FORMOTEROL 160-4.5 MCG 60 PUFF/6 GM MDI IH SCH ×2 (10:40→21:34)
[2018-05-13] MEDS: AZITHROMYCIN 500 MG in DEXTROSE 5%-WATER 250 ML IV SCH (10:40)
[2018-05-14] MEDS: METHYLPREDNISOLONE INJ 40 MG/1 ML SDV IV SCH ×3 (05:05→21:46)
[2018-05-14] MEDS: CYANOCOBALAMIN (VITAMIN B-12) 1,000 MCG TABLET PO SCH (10:33)
[2018-05-14] MEDS: LOSARTAN POTASSIUM 50 MG TABLET PO SCH (10:33)
[2018-05-14] MEDS: BUDESONIDE/FORMOTEROL 160-4.5 MCG 60 PUFF/6 GM MDI IH SCH ×2 (10:36→21:46)
[2018-05-14] MEDS: ENOXAPARIN SODIUM INJ 30 MG/0.3 ML DISP.SYRIN SUBCUT SCH (10:36)
[2018-05-14] MEDS: AZITHROMYCIN 500 MG in DEXTROSE 5%-WATER 250 ML IV SCH (10:38)
[2018-05-15] MEDS: METHYLPREDNISOLONE INJ 40 MG/1 ML SDV IV SCH ×3 (06:04→21:35)
[2018-05-15] MEDS: ENOXAPARIN SODIUM INJ 30 MG/0.3 ML DISP.SYRIN SUBCUT SCH (09:51)
[2018-05-15] MEDS: CYANOCOBALAMIN (VITAMIN B-12) 1,000 MCG TABLET PO SCH (09:51)
[2018-05-15] MEDS: LOSARTAN POTASSIUM 50 MG TABLET PO SCH (09:51)
[2018-05-15] MEDS: BUDESONIDE/FORMOTEROL 160-4.5 MCG 60 PUFF/6 GM MDI IH SCH ×2 (09:51→21:36)
[2018-05-15] MEDS: GUAIFENESIN 600 MG TABLET.SA PO SCH ×2 (09:52→21:32)
[2018-05-15] MEDS: LEVOFLOXACIN 500 MG/D5W RTU 500 MG/100 ML RTUPB IV SCH (10:41)
[2018-05-15 11:13] LABS: ABSOLUTE LYMPHOCYTES (AUTO) 0.7 10^3/uL (0.5-4.7); ABSOLUTE MONOCYTES (AUTO) 0.3 10^3/uL (0.1-1.4); ABSOLUTE NEUT (AUTO) 9.2 10^3/uL (1.7-8.2); HEMATOCRIT 45.4 % (36.0-47.0); HEMOGLOBIN 15.1 g/dL (12.0-15.5); LYMPHOCYTES % (AUTO) 6.9 % (13-45); MEAN CORPUSCULAR HEMOGLOBIN 31.3 pg (27.0-33.4); MEAN CORPUSCULAR HGB CONC 33.2 g/dL (32.0-36.0); MEAN CORPUSCULAR VOLUME 94 fl (80-97); MONOCYTES % (AUTO) 2.5 % (3-13); PLATELET COUNT 247 10^3/uL (150-450); RED BLOOD COUNT 4.82 10^6/uL (3.72-5.28); RED CELL DISTRIBUTION WIDTH 14.2 % (11.5-14.0); SEGMENTED NEUTROPHILS % (AUTO) 90.6 % (42-78); TOTAL CELLS COUNTED % (AUTO) 100 %; WHITE BLOOD COUNT 10.2 10^3/uL (4.0-10.5)
[2018-05-16] MEDS: METHYLPREDNISOLONE INJ 40 MG/1 ML SDV IV SCH (05:49)
[2018-05-16] MEDS: LEVOFLOXACIN 500 MG/D5W RTU 500 MG/100 ML RTUPB IV SCH (09:29)
[2018-05-16] MEDS: CYANOCOBALAMIN (VITAMIN B-12) 1,000 MCG TABLET PO SCH (09:30)
[2018-05-16] MEDS: GUAIFENESIN 600 MG TABLET.SA PO SCH (09:30)
[2018-05-16] MEDS: LOSARTAN POTASSIUM 50 MG TABLET PO SCH (09:30)
[2018-05-16] MEDS: BUDESONIDE/FORMOTEROL 160-4.5 MCG 60 PUFF/6 GM MDI IH SCH (09:36)
[2018-05-16] MEDS: ENOXAPARIN SODIUM INJ 30 MG/0.3 ML DISP.SYRIN SUBCUT SCH (09:37)
[2018-05-16 10:59] VITALS: BP 146/75
--- NOTE | 2018-05-16 11:44 | PDOC PROGRESS REPORT ---
Subjective Progress Note for:: 05/15/18 Subjective:: Patient is seen today she is afebrile she is still coughing, wheezing she denies chest pain nausea vomiting her last bowel movement was 48 hours ago she denies any abdominal pain or any other symptomatology. Reason For Visit: COPD EXACERBATION Physical Exam Vital Signs: Temp Pulse Resp BP Pulse Ox 98.4 F 57 L 16 146/75 H 96 05/16/18 10:57 05/16/18 10:57 05/16/18 10:57 05/16/18 10:57 05/16/18 10:57 Intake & Output 05/15/18 05/16/18 05/17/18 06:59 06:59 06:59 Intake Total 974 1342 Output Total 600 1000 Balance 374 342 Weight 73.1 kg 73 kg General appearance: PRESENT: no acute distress, well-developed, well-nourished Head exam: PRESENT: atraumatic, normocephalic Eye exam: PRESENT: conjunctiva pink, EOMI, PERRLA. ABSENT: scleral icterus Ear exam: PRESENT: normal external ear exam Mouth exam: PRESENT: moist, tongue midline Neck exam: PRESENT: full ROM. ABSENT: carotid bruit, JVD, lymphadenopathy, thyromegaly Respiratory exam: PRESENT: crackles, wheezes Cardiovascular exam: PRESENT: RRR. ABSENT: diastolic murmur, rubs, systolic murmur Pulses: PRESENT: normal dorsalis pedis pul, +2 pedal pulses bilateral Vascular exam: PRESENT: normal capillary refill GI/Abdominal exam: PRESENT: normal bowel sounds, soft. ABSENT: distended, guarding, mass, organolmegaly, rebound, tenderness Rectal exam: PRESENT: deferred Extremities exam: PRESENT: full ROM Musculoskeletal exam: PRESENT: ambulatory Neurological exam: PRESENT: alert, awake, oriented to person, oriented to place , reflexes normal, CN II-XII grossly intact, normal gait Psychiatric exam: PRESENT: appropriate affect, normal mood. ABSENT: homicidal ideation, suicidal ideation Results Laboratory Results: 05/15/18 09:25 05/12/18 08:11 05/14/18 10:45 Sputum Gram Stain - Final 05/14/18 10:45 Sputum Sputum Culture - Final Pseudomonas Aeruginosa Normal Amanda Impressions: Chest X-Ray 05/09/18 16:53 IMPRESSION: NO ACUTE RADIOGRAPHIC FINDING IN THE CHEST. Assessment & Plan - Diagnosis (1) COPD with acute exacerbation Is this a current diagnosis for this admission?: Yes Plan: Decrease Solu-Medrol to 40 mg IV every 8 continue on the beta-2 agonists, her sputum which grew gram-negative rods she is only getting IV azithromycin so we will discontinue and put her on Levaquin 500 p.o. daily we will also add Mucinex 600 twice daily (2) Benign essential hypertension Is this a current diagnosis for this admission?: Yes Plan: Continue on home antihypertensives. (3) Vascular dementia Is this a current diagnosis for this admission?: Yes Plan: Continue on Aricept patient is also receiving GI and DVT prophylaxis. (4) Acute respiratory failure with hypoxia Is this a current diagnosis for this admission?: Yes
--- NOTE | 2018-05-22 15:03 | PDOC DISCHARGE SUMMARY ---
General - Admit/Disc Date/PCP Admission Date/Primary Care Provider: 05/09/18 20:54 REGIS MOLINA MD Discharge Date: 05/16/18 - Discharge Diagnosis (1) COPD with acute exacerbation Is this a current diagnosis for this admission?: Yes (2) Benign essential hypertension Is this a current diagnosis for this admission?: Yes (3) Vascular dementia Is this a current diagnosis for this admission?: Yes (4) Acute respiratory failure with hypoxia Is this a current diagnosis for this admission?: Yes (5) Thrombocytopenia Is this a current diagnosis for this admission?: Yes - Additional Information Resuscitation Status: Full Code Discharge Diet: Cardiac Discharge Activity: Activity As Tolerated Prescriptions: Ipratropium/Albuterol Sulfate [Duoneb 3 ml Ampul] 3 ml NEB Q3H PRN #30 [email or web address] PRN Reason: Home Medications: Aspirin [Adult Low Dose Aspirin EC] 81 mg PO DAILY 05/10/18 Budesonide/Formoterol Fumarate [Symbicort HFA 160-4.5 mcg Inhaler 6 gm] 1 puff IH Q12 05/10/18 Ergocalciferol (Vitamin D2) [Drisdol 50,000 unit (1.25MG) Capsule] 50,000 unit PO CARDENAS 05/10/18 Losartan Potassium [Cozaar 100 mg Tablet] 100 mg PO DAILY 05/10/18 Memantine HCl [Namenda 10 mg Tablet] 10 mg PO BID 05/10/18 Simvastatin [Zocor 20 mg Tablet] 20 mg PO QPM 05/10/18 Ipratropium/Albuterol Sulfate [Duoneb 3 ml Ampul] 3 ml NEB Q3H PRN #30 [email or web address] 05/16/18 History of Present Illness History of Present Illness: RADHA WASHINGTON is a 87 year old female Hospital Course Hospital Course: She was admitted to the hospital with IV azithromycin, IV steroids, beta-2 agonist. She had blood cultures which were negative sputum cultures which were sent and essentially grew gram-negative rods 3+ polys 1+ epithelial gram- positive cocci. On her fourth to fifth day she was switched from IV azithromycin to IV Levaquin for better gram-negative coverage. Slowly she improved with less shortness of breath less wheezing less cough prior to discharge she was afebrile she was off oxygen with a saturation in the high 90s , she was ambulatory without any symptomatology and she was felt stable for discharge. Physical Exam Vital Signs: Temp Pulse Resp BP Pulse Ox 98.4 F 57 L 16 146/75 H 96 05/16/18 10:57 05/16/18 10:57 05/16/18 10:57 05/16/18 10:57 05/16/18 10:57 Intake & Output 05/15/18 05/16/18 05/17/18 06:59 06:59 06:59 Intake Total 974 1342 Output Total 600 1000 Balance 374 342 Weight 73.1 kg 73 kg General appearance: PRESENT: no acute distress, well-developed, well-nourished Head exam: PRESENT: atraumatic, normocephalic Eye exam: PRESENT: conjunctiva pink, EOMI, PERRLA. ABSENT: scleral icterus Ear exam: PRESENT: normal external ear exam Mouth exam: PRESENT: moist, tongue midline Neck exam: PRESENT: full ROM. ABSENT: carotid bruit, JVD, lymphadenopathy, thyromegaly Respiratory exam: PRESENT: decreased breath sounds, wheezes Cardiovascular exam: PRESENT: RRR. ABSENT: diastolic murmur, rubs, systolic murmur Pulses: PRESENT: normal dorsalis pedis pul, +2 pedal pulses bilateral Vascular exam: PRESENT: normal capillary refill GI/Abdominal exam: PRESENT: normal bowel sounds, soft. ABSENT: distended, guarding, mass, organolmegaly, rebound, tenderness Rectal exam: PRESENT: deferred Extremities exam: PRESENT: full ROM Musculoskeletal exam: PRESENT: ambulatory Neurological exam: PRESENT: alert, altered, awake, oriented to person, oriented to place, reflexes normal, CN II-XII grossly intact, normal gait Psychiatric exam: PRESENT: appropriate affect, normal mood. ABSENT: homicidal ideation, suicidal ideation Skin exam: PRESENT: dry, intact, warm. ABSENT: cyanosis, rash Results Laboratory Results: 05/15/18 09:25 05/12/18 08:11 05/14/18 10:45 Sputum Gram Stain - Final 05/14/18 10:45 Sputum Sputum Culture - Final Pseudomonas Aeruginosa Normal Amanda Impressions: Chest X-Ray 05/09/18 16:53 IMPRESSION: NO ACUTE RADIOGRAPHIC FINDING IN THE CHEST. Qualifiers - * PATIENT BEING DISCHARGED WITH ANY OF THE FOLLOWING DIAGNOSIS: No VTE patient discharged on overlapping Therapy?: Yes Stroke Pt being discharged on Anti-thrombolytic therapy?: Yes Stroke Pt being discharged on Anti-coagulation therapy?: Yes Stroke Pt being discharged on Statins?: Yes OK Pt being discharged on Aspirin therapy?: Yes OK Pt being discharged on Statins?: Yes Plan Discharge Plan: Patient's med reconciliation was done, she will be given a prescription for Levaquin 500 p.o. daily for 7 days, prednisone 40 mg p.o. daily for 7 days, prescription was left in the chart for nebulizer and prescription for DuoNeb solution 3 mL's 3 times daily. She was given instructions on deep breathing and incentive spirometry with her at bedside. With regards to the thrombocytopenia she will be seen in 7 days at which time we will check for platelet counts at that time. Case was discussed with nursing. Time Spent: Less than 30 Minutes
== END 2018-05-16 12:00 | disposition home or self-care (01) | DRG 190 ==
LOC: ER 15:48 → EH 20:54 → 4W 05-10 05:11 → 5 05-11 15:17
PROVIDERS: ADMIT Internal Medicine; ATTEND Internal Medicine
DX: J44.1 Chronic obstructive pulmonary disease with (acute) exacerbation (principal); J96.01 Acute respiratory failure with hypoxia; E78.00 Pure hypercholesterolemia, unspecified; I10 Essential (primary) hypertension; M15.9 Polyosteoarthritis, unspecified; F01.50 Vascular dementia, unspecified severity, without behavioral disturbance, psychotic disturbance, mood disturbance, and anxiety; D69.6 Thrombocytopenia, unspecified; B96.5 Pseudomonas (aeruginosa) (mallei) (pseudomallei) as the cause of diseases classified elsewhere; Z87.891 Personal history of nicotine dependence; Z79.899 Other long term (current) drug therapy
CPT/HCPCS: 36415; 71046; 80048; 80053; 81001; 82553; 82803; 83735; 83880; 84100; 84484; 85025; 87070; 87077; 87086; 87186; 87205; 94640; 94799; 99284; J0456; J1650; J1956; J2920; J2930; J3490; J7030; J7060; J7620

== ENCOUNTER → 2018-11-28 | Outpatient (CLI) | payer MEDICARE, BC ==
[2018-11-28 11:15] LABS: TRIGLYCERIDES 89 mg/dL (<150)
[2018-11-28 11:26] LABS: DIRECT LDL 82 mg/dL (<100)
== END ==
LOC: OD 10:19
PROVIDERS: ATTEND Internal Medicine
DX: E78.5 Hyperlipidemia, unspecified (principal); E53.8 Deficiency of other specified B group vitamins
CPT/HCPCS: 36415; 80061; 82306; 82607

== ENCOUNTER 2019-02-21 14:46 | Inpatient (IN) | payer MEDICARE, BC ==
[2019-02-21] MEDS ORDERED: ACETAMINOPHEN 325 MG TABLET PO PRN (15:10)
--- NOTE | 2019-02-21 16:07 | RADIOLOGY REPORT (SQ) ---
EXAM DESCRIPTION: CHEST SINGLE VIEW COMPLETED DATE/TIME: 02/21/2019 3:55 pm REASON FOR STUDY: PNA COMPARISON: 05/09/2018 EXAM PARAMETERS: NUMBER OF VIEWS: One view. TECHNIQUE: Single frontal radiographic view of the chest acquired. RADIATION DOSE: NA LIMITATIONS: None. FINDINGS: LUNGS AND PLEURA: No opacities, masses or pneumothorax. No pleural effusion. MEDIASTINUM AND HILAR STRUCTURES: No masses. Contour normal. HEART AND VASCULAR STRUCTURES: Heart normal in size. Normal vasculature. BONES: No acute findings. HARDWARE: None in the chest. OTHER: No other significant finding. IMPRESSION: NO ACUTE RADIOGRAPHIC FINDING IN THE CHEST. TECHNICAL DOCUMENTATION: JOB ID: [id number] [email or web address] Rights Reserved Reading location - IP/workstation name: [email or web address]
[2019-02-21 16:12] LABS: ARTERIAL BLOOD BASE EXCESS 2.1 mmol/L; ARTERIAL BLOOD FIO2 ROOMAIR; ARTERIAL BLOOD H2CO3 1.06 mmol/L (1.05-1.35); ARTERIAL BLOOD HCO3 25.3 mmol/L (20-24); ARTERIAL BLOOD O2 SATURATION 92.7 % (94-98); ARTERIAL BLOOD PCO2 35.1 mmHg (35-45); ARTERIAL BLOOD PH 7.48 (7.35-7.45); ARTERIAL BLOOD PO2 59.9 mmHg (80-100); ARTERIAL BLOOD TOTAL CO2 26.3 mmol/L (21-25)
--- NOTE | 2019-02-21 16:17 | PDOC H&P ---
History of Present Illness Admission Date/PCP: 02/21/19 14:46 QUINTON SHAFFER MD Patient complains of: Shortness of breath cough chest pain History of Present Illness: RADHA WASHINGTON is a 88 year old female Patient comes in with over 1 to 1-1/2 weeks of initial runny nose nasal congestion cough now has progressed to anorexia shortness of breath wheezing dyspnea on exertion poor energy and anterior chest pain. The cough is productive though unquantifiable she is also having a fever of over 101. Past Medical History Cardiac Medical History: Reports: Hyperlipidema, Hypertension Denies: Coronary Artery Disease, Myocardial Infarction Pulmonary Medical History: Reports: Chronic Obstructive Pulmonary Disease (COPD), Pneumonia Denies: Asthma, Bronchitis, Tuberculosis EENT Medical History: Reports: None Neurological Medical History: Reports: None Denies: Seizures Neurological History Note: Dementia Endocrine Medical History: Reports: None Malignancy Medical History: Reports: None GI Medical History: Reports: None Musculoskeltal Medical History: Reports: Arthritis - general Skin Medical History: Reports: None Psychiatric Medical History: Reports: None Denies: Depression Traumatic Medical History: Reports: None Hematology: Denies: Anemia Hematology History Note: B12 deficiency Infectious Medical History: Reports: None Past Surgical History Past Surgical History: Reports: Appendectomy, Section - x2 Social History Information Source: Patient Lives with: Family Smoking Status: Never Smoker Frequency of Alcohol Use: None Hx Recreational Drug Use: No Hx Prescription Drug Abuse: No - Advance Directive Resuscitation Status: Full Code Family History Family History: Reviewed & Not Pertinent Parental Family History Reviewed: Yes Children Family History Reviewed: Yes Sibling(s) Family History Reviewed.: Yes Medication/Allergy Home Medications: Ergocalciferol (Vitamin D2) [Drisdol 50,000 unit (1.25MG) Capsule] 50,000 unit PO CARDENAS 05/10/18 Losartan Potassium [Cozaar 100 mg Tablet] 100 mg PO DAILY 05/10/18 Memantine HCl [Namenda 10 mg Tablet] 10 mg PO Q12 05/10/18 Simvastatin [Zocor 20 mg Tablet] 20 mg PO QPM 05/10/18 Cyanocobalamin (Vitamin B-12) [Vitamin B-12 1000 Mcg Tablet] 1,000 mcg PO DAILY 02/21/19 Allergies/Adverse Reactions: No Known Allergies Allergy (Verified 05/09/18 15:49) Review of Systems All systems: as per PMH Constitutional: PRESENT: as per HPI Eyes: PRESENT: as per HPI Ears: PRESENT: as per HPI Nose, Mouth, and Throat: PRESENT: as per HPI Breasts: PRESENT: as per HPI Cardiovascular: PRESENT: as per HPI Respiratory: PRESENT: as per HPI Gastrointestinal: PRESENT: as per HPI Genitourinary: PRESENT: as per HPI Musculoskeletal: PRESENT: as per HPI Integumentary: PRESENT: as per HPI Neurological: PRESENT: as per HPI Psychiatric: PRESENT: as per HPI Endocrine: PRESENT: as per HPI Hematologic/Lymphatic: PRESENT: as per HPI Physical Exam Vital Signs: Intake & Output 02/20/19 02/21/19 02/22/19 06:59 06:59 06:59 Weight 70 kg General appearance: PRESENT: mild distress Head exam: PRESENT: atraumatic, normocephalic Eye exam: PRESENT: conjunctiva pink, EOMI, PERRLA. ABSENT: scleral icterus Ear exam: PRESENT: normal external ear exam Mouth exam: PRESENT: moist, tongue midline Neck exam: PRESENT: full ROM. ABSENT: carotid bruit, JVD, lymphadenopathy, thyromegaly Respiratory exam: PRESENT: crackles, decreased breath sounds, wheezes Cardiovascular exam: PRESENT: RRR. ABSENT: diastolic murmur, rubs, systolic murmur Pulses: PRESENT: normal dorsalis pedis pul, +2 pedal pulses bilateral Vascular exam: PRESENT: normal capillary refill GI/Abdominal exam: PRESENT: normal bowel sounds, soft. ABSENT: distended, guarding, mass, organolmegaly, rebound, tenderness Rectal exam: PRESENT: deferred Extremities exam: PRESENT: full ROM Musculoskeletal exam: PRESENT: ambulatory Neurological exam: PRESENT: alert, awake, oriented to person, oriented to place, oriented to time, oriented to situation, CN II-XII grossly intact. ABSENT: motor sensory deficit Psychiatric exam: PRESENT: appropriate affect, normal mood. ABSENT: homicidal ideation, suicidal ideation Results Impressions: Chest X-Ray 02/21/19 15:15 IMPRESSION: NO ACUTE RADIOGRAPHIC FINDING IN THE CHEST. Assessment & Plan - Diagnosis (1) COPD with acute exacerbation Is this a current diagnosis for this admission?: Yes Plan: We will put [id number] nebulizer treatment with DuoNeb's, we will put on Solu-Medrol 60 IV every 8, Symbicort 160/4.51 puff twice daily Mucinex twice daily flutter valve (2) Benign essential hypertension Plan: We will resume her antihypertensive losartan and amlodipine when her blood pressure improves which most likely showing signs of systemic inflammatory response syndrome (3) Vascular dementia Is this a current diagnosis for this admission?: Yes Plan: Tumor Namenda 10 mg daily - Time Time Spent: 50 to 70 Minutes Medications reviewed and adjusted accordingly: Yes Anticipated discharge: Home Within: Other - Inpatient Certification Based on my medical assessment, after consideration of the patient's comorbidities, presenting symptoms, or acuity I expect that the services needed warrant INPATIENT care.: Yes I certify that my determination is in accordance with my understanding of Medicare's requirements for reasonable and necessary INPATIENT services [42 CFR 412.3e].: Yes Medical Necessity: Need For IV Fluids, Need for Nebulizer Therapy and Monitoring of Response, Need for IV Antibiotics Post Hospital Care: D/C [employer] Documentation
[2019-02-21 16:46] LABS: MEAN CORPUSCULAR HEMOGLOBIN 30.6 pg (27.0-33.4); MEAN CORPUSCULAR HGB CONC 33.2 g/dL (32.0-36.0); MEAN CORPUSCULAR VOLUME 92 fl (80-97); PLATELET COUNT 138 10^3/uL (150-450); RED BLOOD COUNT 4.56 10^6/uL (3.72-5.28); RED CELL DISTRIBUTION WIDTH 16.7 % (11.5-14.0)
[2019-02-21 17:03] LABS: ABSOLUTE LYMPHOCYTES# (MANUAL) 0.9 10^3/uL (0.5-4.7); ABSOLUTE MONOCYTES # (MANUAL) 0.9 10^3/uL (0.1-1.4); ABSOLUTE NEUTROPHILS# (MANUAL) 13.2 10^3/uL (1.7-8.2); BASOPHILS % (MANUAL) 0 % (0-2); EOSINOPHILS % (MANUAL) 0 % (0-6); LYMPHOCYTES % (MANUAL) 6 % (13-45); METAMYELOCYTES % (MANUAL) 1 % (0); MONOCYTES % (MANUAL) 6 % (3-13); SEGMENTED NEUTROPHILS % (MAN) 87 % (42-78); TOTAL CELLS COUNTED 100
[2019-02-21 17:04] LABS: ANISOCYTOSIS 1+; PLATELET COMMENT DECREASED; POLYCHROMASIA SLIGHT
[2019-02-21 17:09] LABS: ALANINE AMINOTRANSFERASE 15 U/L (9-52); ALBUMIN 2.9 g/dL (3.5-5.0); ALKALINE PHOSPHATASE 83 U/L (38-126); ANION GAP 12 (5-19); ASPARTATE AMINO TRANSFERASE 19 U/L (14-36); BILIRUBIN,DIRECT 0.3 mg/dL (0.0-0.4); BILIRUBIN,TOTAL 0.6 mg/dL (0.2-1.3); BLOOD UREA NITROGEN 14 mg/dL (7-20); CALCIUM 9.2 mg/dL (8.4-10.2); CARBON DIOXIDE 21 mmol/L (22-30); CHLORIDE 104 mmol/L (98-107); CREATINE KINASE 28 U/L (30-135); GLUCOSE 126 mg/dL (75-110); POTASSIUM 3.7 mmol/L (3.6-5.0); SODIUM 136.5 mmol/L (137-145); TOTAL PROTEIN 5.6 g/dL (6.3-8.2)
[2019-02-21 17:19] LABS: CREATINE KINASE MB 0.35 ng/mL (<4.55); TROPONIN I 0.039 ng/mL
[2019-02-21] MEDS ORDERED: AZITHROMYCIN 500 MG in DEXTROSE 5%-WATER 250 ML IV SCH (18:00)
[2019-02-21] MEDS ORDERED: AZITHROMYCIN 250 MG in DEXTROSE 5%-WATER 250 ML IV SCH (18:00)
[2019-02-21] MEDS: GUAIFENESIN 600 MG TABLET.SA PO SCH (19:35)
[2019-02-21] MEDS: IPRATROPIUM/ALBUTEROL 0.5-2.5 MG/3 ML AMPUL NEB SCH (20:10)
[2019-02-21 22:40] LABS: CREATINE KINASE MB 0.49 ng/mL (<4.55); TROPONIN I 0.036 ng/mL
[2019-02-21] MEDS: HEPARIN SOD (PORCINE) 5,000 UNIT/ML 1 ML SYRINGE SUBCUT SCH (22:56)
[2019-02-21 23:02] LABS: APPEARANCE,URINE CLEAR; BILIRUBIN,URINE NEGATIVE (NEGATIVE); COLOR,URINE YELLOW; GLUCOSE, URINE NEGATIVE (NEGATIVE); KETONES,URINE NEGATIVE (NEGATIVE); LEUKOCYTE ESTERASE,URINE LARGE (NEGATIVE); NITRITE,URINE NEGATIVE (NEGATIVE); PROTEIN,URINE NEGATIVE (NEGATIVE); URINE SPECIFIC GRAVITY 1.008; UROBILINOGEN,URINE NEGATIVE mg/dL (<2.0)
[2019-02-21] MEDS: METHYLPREDNISOLONE INJ 40 MG/1 ML SDV IV SCH (23:02)
[2019-02-21] MEDS: CEFTRIAXONE SODIUM 1,000 MG in DEXTROSE 5%-WATER 50 ML IV SCH (23:02)
[2019-02-22 04:37] LABS: HEMATOCRIT 37.6 % (36.0-47.0); HEMOGLOBIN 12.7 g/dL (12.0-15.5); MEAN CORPUSCULAR HEMOGLOBIN 31.2 pg (27.0-33.4); MEAN CORPUSCULAR HGB CONC 33.8 g/dL (32.0-36.0); MEAN CORPUSCULAR VOLUME 92 fl (80-97); PLATELET COUNT 119 10^3/uL (150-450); RED BLOOD COUNT 4.08 10^6/uL (3.72-5.28); WHITE BLOOD COUNT 9.4 10^3/uL (4.0-10.5)
[2019-02-22 04:47] LABS: ANION GAP 8 (5-19); BLOOD UREA NITROGEN 14 mg/dL (7-20); CALCIUM 8.3 mg/dL (8.4-10.2); CARBON DIOXIDE 23 mmol/L (22-30); CHLORIDE 109 mmol/L (98-107); GLUCOSE 138 mg/dL (75-110); SODIUM 140.3 mmol/L (137-145)
[2019-02-22 04:57] LABS: CREATINE KINASE MB 0.76 ng/mL (<4.55); TROPONIN I 0.021 ng/mL
[2019-02-22 04:59] LABS: ABSOLUTE LYMPHOCYTES# (MANUAL) 0.2 10^3/uL (0.5-4.7); ABSOLUTE MONOCYTES # (MANUAL) 0.3 10^3/uL (0.1-1.4); ABSOLUTE NEUTROPHILS# (MANUAL) 8.9 10^3/uL (1.7-8.2); BAND NEUTROPHILS % (MANUAL) 3 % (3-5); BASOPHILS % (MANUAL) 0 % (0-2); EOSINOPHILS % (MANUAL) 0 % (0-6); LYMPHOCYTES % (MANUAL) 2 % (13-45); MONOCYTES % (MANUAL) 3 % (3-13); PLATELET COMMENT DECREASED; RBC MORPHOLOGY COMMENT NORMO-CYTIC/CHROMIC; SEGMENTED NEUTROPHILS % (MAN) 92 % (42-78); TOTAL CELLS COUNTED 100
[2019-02-22] MEDS: HEPARIN SOD (PORCINE) 5,000 UNIT/ML 1 ML SYRINGE SUBCUT SCH ×3 (05:28→21:38)
[2019-02-22] MEDS: METHYLPREDNISOLONE INJ 40 MG/1 ML SDV IV SCH (05:35)
[2019-02-22] MEDS: NORMAL SALINE 1000 ML 1,000 ML IV PRN ×2 (05:35→21:40)
[2019-02-22] MEDS: IPRATROPIUM/ALBUTEROL 0.5-2.5 MG/3 ML AMPUL NEB SCH ×3 (08:53→19:48)
--- NOTE | 2019-02-22 10:36 | PDOC PROGRESS REPORT ---
Subjective Progress Note for:: 02/22/19 Subjective:: She is feeling better she is up walking with physical therapy made at 40 feet less short of breath less congested no fever ate dinner last night and a full breakfast. Reason For Visit: COPD EXACERBATION Physical Exam Vital Signs: Temp Pulse Resp BP Pulse Ox 97.7 F 80 18 109/59 L 91 L 02/22/19 08:01 02/22/19 08:55 02/22/19 08:55 02/22/19 08:01 02/22/19 08:55 Intake & Output 02/21/19 02/22/19 02/23/19 06:59 06:59 06:59 Intake Total 540 Output Total 1800 Balance -1260 Weight 70 kg General appearance: PRESENT: no acute distress Head exam: PRESENT: atraumatic, normocephalic Eye exam: PRESENT: conjunctiva pink, EOMI, PERRLA. ABSENT: scleral icterus Ear exam: PRESENT: normal external ear exam Mouth exam: PRESENT: moist, tongue midline Neck exam: PRESENT: full ROM. ABSENT: carotid bruit, JVD, lymphadenopathy, thyromegaly Respiratory exam: PRESENT: decreased breath sounds, prolonged expiratory phas, unlabored Cardiovascular exam: PRESENT: RRR. ABSENT: diastolic murmur, rubs, systolic murmur Pulses: PRESENT: normal dorsalis pedis pul, +2 pedal pulses bilateral GI/Abdominal exam: PRESENT: normal bowel sounds, soft. ABSENT: distended, guarding, mass, organolmegaly, rebound, tenderness Rectal exam: PRESENT: deferred Extremities exam: PRESENT: full ROM Musculoskeletal exam: PRESENT: ambulatory Neurological exam: PRESENT: alert, awake, oriented to person, oriented to situation, abnormal gait, CN II-XII grossly intact Psychiatric exam: PRESENT: appropriate affect, normal mood. ABSENT: homicidal ideation, suicidal ideation Skin exam: PRESENT: dry, intact, warm. ABSENT: cyanosis, rash Results Laboratory Results: 02/22/19 04:00 02/22/19 04:00 02/21/19 02/21/19 02/21/19 15:40 16:32 16:32 WBC 15.0 H RBC 4.56 Hgb 14.0 Hct 42.0 MCV 92 MCH 30.6 MCHC 33.2 RDW 16.7 H Plt Count 138 L Seg Neutrophils % Not Reportable Lymphocytes % Not Reportable Monocytes % Not Reportable Eosinophils % Not Reportable Basophils % Not Reportable Absolute Neutrophils Not Reportable Absolute Lymphocytes Not Reportable Absolute Monocytes Not Reportable Absolute Eosinophils Not Reportable Absolute Basophils Not Reportable Carbonic Acid 1.06 HCO3/H2CO3 Ratio 23:1 ABG pH 7.48 H ABG pCO2 35.1 ABG pO2 59.9 L ABG HCO3 25.3 H ABG O2 Saturation 92.7 L ABG Base Excess 2.1 FiO2 ROOMAIR Sodium 136.5 L Potassium 3.7 Chloride 104 Carbon Dioxide 21 L Anion Gap 12 BUN 14 Creatinine 0.68 Est GFR ( Amer) > 60 Est GFR (Non-Af Amer) > 60 Glucose 126 H Calcium 9.2 Total Bilirubin 0.6 AST 19 ALT 15 Alkaline Phosphatase 83 Total Protein 5.6 L Albumin 2.9 L Urine Color Urine Appearance Urine pH Ur Specific [place] Urine Protein Urine Glucose (UA) Urine Ketones Urine Blood Urine Nitrite Ur Leukocyte Esterase Urine WBC (Auto) Urine RBC (Auto) 02/21/19 02/22/19 02/22/19 22:50 04:00 04:00 WBC 9.4 RBC 4.08 Hgb 12.7 Hct 37.6 MCV 92 MCH 31.2 MCHC 33.8 RDW 17.0 H Plt Count 119 L Seg Neutrophils % Not Reportable Lymphocytes % Not Reportable Monocytes % Not Reportable Eosinophils % Not Reportable Basophils % Not Reportable Absolute Neutrophils Not Reportable Absolute Lymphocytes Not Reportable Absolute Monocytes Not Reportable Absolute Eosinophils Not Reportable Absolute Basophils Not Reportable Carbonic Acid HCO3/H2CO3 Ratio ABG pH ABG pCO2 ABG pO2 ABG HCO3 ABG O2 Saturation ABG Base Excess FiO2 Sodium 140.3 Potassium 4.0 Chloride 109 H Carbon Dioxide 23 Anion Gap 8 BUN 14 Creatinine 0.59 Est GFR ( Amer) > 60 Est GFR (Non-Af Amer) > 60 Glucose 138 H Calcium 8.3 L Total Bilirubin AST ALT Alkaline Phosphatase Total Protein Albumin Urine Color YELLOW Urine Appearance CLEAR Urine pH 6.0 Ur Specific [place] 1.008 Urine Protein NEGATIVE Urine Glucose (UA) NEGATIVE Urine Ketones NEGATIVE Urine Blood NEGATIVE Urine Nitrite NEGATIVE Ur Leukocyte Esterase LARGE H Urine WBC (Auto) 22 Urine RBC (Auto) 1 02/21/19 02/21/19 02/21/19 16:32 16:32 21:51 Creatine Kinase 28 L 25 L CK-MB (CK-2) 0.35 Troponin I 0.039 02/21/19 02/22/19 02/22/19 21:51 04:00 04:00 Creatine Kinase 27 L CK-MB (CK-2) 0.49 0.76 Troponin I 0.036 0.021 Impressions: Chest X-Ray 02/21/19 15:15 IMPRESSION: NO ACUTE RADIOGRAPHIC FINDING IN THE CHEST. Assessment & Plan - Diagnosis (1) COPD with acute exacerbation Is this a current diagnosis for this admission?: Yes Plan: Plan we will continue short acting beta-2 agonist and iatropium p.m. nebulizers, we will do a 6-minute walk test to see if she has any desaturatio, we will decrease her Solu-Medrol to 40 every 12 hours (2) Benign essential hypertension Is this a current diagnosis for this admission?: Yes Plan: Present we will still keep on hold her antihypertensives as her blood pressure i s low normal. While she is getting IV hydration (3) Vascular dementia Is this a current diagnosis for this admission?: Yes (4) Systemic inflammatory response syndrome Is this a current diagnosis for this admission?: Yes Plan: Continue IV fluids, oxygen supplementation if necessary and IV antibiotics while we wait for the cultures. (5) UTI (urinary tract infection) Qualifiers: Urinary tract infection type: acute cystitis Hematuria presence: without hematuria Qualified Code(s): N30.00 - Acute cystitis without hematuria Is this a current diagnosis for this admission?: Yes Plan: We will discontinue the azithromycin and continue Rocephin while keeping an eye on her platelet count. - Time Time Spent with patient: 15-24 minutes Smoking Cessation Education: 3 to 10 minutes Medications reviewed and adjusted accordingly: Yes Anticipated discharge: Home Within: Other - Inpatient Certification Based on my medical assessment, after consideration of the patient's co morbidities, presenting symptoms, or acuity I expect that the services needed warrant INPATIENT care.: Yes I certify that my determination is in accordance with my understanding of Medicare's requirements for reasonable and necessary INPATIENT services [42 CFR 412.3e].: Yes Medical Necessity: Need For IV Fluids, Need for IV Antibiotics Post Hospital Care: D/C [employer] Documentation
[2019-02-22] MEDS: DOCUSATE SODIUM 100 MG CAPSULE PO SCH (11:31)
[2019-02-22] MEDS: FLUTICASONE/VILANTEROL 200-25 MCG/DOSE IH SCH (11:31)
[2019-02-22] MEDS: GUAIFENESIN 600 MG TABLET.SA PO SCH ×2 (11:31→17:42)
[2019-02-22] MEDS: CEFTRIAXONE SODIUM 1,000 MG in DEXTROSE 5%-WATER 50 ML IV SCH (21:39)
[2019-02-22] MEDS ORDERED: METHYLPREDNISOLONE INJ 40 MG/1 ML SDV IV SCH (22:00)
[2019-02-23] MEDS: HEPARIN SOD (PORCINE) 5,000 UNIT/ML 1 ML SYRINGE SUBCUT SCH (06:11)
[2019-02-23 06:55] LABS: HEMATOCRIT 37.8 % (36.0-47.0); HEMOGLOBIN 12.5 g/dL (12.0-15.5); MEAN CORPUSCULAR HEMOGLOBIN 30.9 pg (27.0-33.4); MEAN CORPUSCULAR HGB CONC 33.1 g/dL (32.0-36.0); MEAN CORPUSCULAR VOLUME 93 fl (80-97); PLATELET COUNT 140 10^3/uL (150-450); RED BLOOD COUNT 4.06 10^6/uL (3.72-5.28); RED CELL DISTRIBUTION WIDTH 16.8 % (11.5-14.0); WHITE BLOOD COUNT 10.6 10^3/uL (4.0-10.5)
[2019-02-23 07:20] LABS: ANION GAP 7 (5-19); BLOOD UREA NITROGEN 14 mg/dL (7-20); CALCIUM 7.9 mg/dL (8.4-10.2); CARBON DIOXIDE 23 mmol/L (22-30); CHLORIDE 111 mmol/L (98-107); GLUCOSE 112 mg/dL (75-110); POTASSIUM 3.9 mmol/L (3.6-5.0); SODIUM 140.7 mmol/L (137-145)
[2019-02-23 07:23] LABS: ABSOLUTE LYMPHOCYTES# (MANUAL) 0.7 10^3/uL (0.5-4.7); ABSOLUTE MONOCYTES # (MANUAL) 0.2 10^3/uL (0.1-1.4); ABSOLUTE NEUTROPHILS# (MANUAL) 9.6 10^3/uL (1.7-8.2); BAND NEUTROPHILS % (MANUAL) 1 % (3-5); BASOPHILS % (MANUAL) 0 % (0-2); EOSINOPHILS % (MANUAL) 0 % (0-6); LYMPHOCYTES % (MANUAL) 3 % (13-45); MONOCYTES % (MANUAL) 2 % (3-13); SEGMENTED NEUTROPHILS % (MAN) 90 % (42-78); TOTAL CELLS COUNTED 100
[2019-02-23 07:28] LABS: ANISOCYTOSIS 1+; PLATELET COMMENT ADEQUATE
[2019-02-23 07:34] LABS: OVALOCYTES SLIGHT; TEAR DROP CELLS SLIGHT
[2019-02-23] MEDS: IPRATROPIUM/ALBUTEROL 0.5-2.5 MG/3 ML AMPUL NEB SCH ×2 (08:09→13:38)
--- NOTE | 2019-02-23 09:17 | PDOC DISCHARGE SUMMARY ---
General - Admit/Disc Date/PCP Admission Date/Primary Care Provider: 02/21/19 14:46 QUINTON SHAFFER MD Discharge Date: 02/23/19 - Discharge Diagnosis (1) COPD with acute exacerbation Is this a current diagnosis for this admission?: Yes (2) Benign essential hypertension Is this a current diagnosis for this admission?: Yes (3) Vascular dementia Is this a current diagnosis for this admission?: Yes (4) Systemic inflammatory response syndrome Is this a current diagnosis for this admission?: Yes (5) UTI (urinary tract infection) Is this a current diagnosis for this admission?: Yes - Additional Information Resuscitation Status: Full Code Discharge Diet: Cardiac Discharge Activity: Activity As Tolerated Prescriptions: Amox Tr/Potassium Clavulanate [Augmentin "500" Tablet] 1 tab PO Q8 #20 tablet Prednisone [Deltasone 20 mg Tablet] 20 mg PO BID #14 tablet Home Medications: Ergocalciferol (Vitamin D2) [Drisdol 50,000 unit (1.25MG) Capsule] 50,000 unit PO CARDENAS 05/10/18 Losartan Potassium [Cozaar 100 mg Tablet] 100 mg PO DAILY 05/10/18 Memantine HCl [Namenda 10 mg Tablet] 10 mg PO Q12 05/10/18 Simvastatin [Zocor 20 mg Tablet] 20 mg PO QPM 05/10/18 Cyanocobalamin (Vitamin B-12) [Vitamin B-12 1000 mcg Tablet] 1,000 mcg PO DAILY 02/21/19 Amox Tr/Potassium Clavulanate [Augmentin "500" Tablet] 1 tab PO Q8 #20 tablet 02/23/19 Guaifenesin [Mucinex Sr 600 mg Tablet.sa] 600 mg PO BID tablet.sa 02/23/19 Ipratropium/Albuterol Sulfate [Duoneb 3 ml Ampul] 3 ml NEB [id number] vial.neb 02/23/19 Prednisone [Deltasone 20 mg Tablet] 20 mg PO BID #14 tablet 02/23/19 History of Present Illness Patient complains of: Shortness of breath, fever, chills, dysuria History of Present Illness: RADHA WASHINGTON is a 88 year old female Patient comes in with over 1 to 1-1/2 weeks of initial runny nose nasal congestion cough now has progressed to anorexia shortness of breath wheezing dyspnea on exertion poor energy and anterior chest pain. The cough is productive though unquantifiable she is also having a fever of over 101. Hospital Course Hospital Course: Patient was admitted from my office after being given Rocephin in the office, and Solu-Medrol 125 mg. She had hinds cultures her blood pressure medications were held that she had criteria for Sirs, temperature over 1 1, leukocytosis 15,000, heart rate over 100. She was put on broad-spectrum IV antibiotics, IV fluid resuscitation, nebulizer treatments, IV steroids. Her clinical symptomatology improved within 24 hours her appetite increased she was afebrile her leukocytosis resolved she felt better with the treatment course given. Blood cultures were negative urine cultures were negative but she had received IV antibiotics prior, chest x-ray showed evidence of COPD with no active infiltrates. She had an ABG which showed hypoxia with normal saturation upon 6- minute walk test she desaturated to 86% having her require oxygen at home. Since the patient had shown improvement through her hospital course she was felt stable for discharge she will be sent home with physical therapy home oxygen. Physical Exam Vital Signs: Temp Pulse Resp BP Pulse Ox 97.9 F 84 16 146/85 H 93 02/23/19 07:49 02/23/19 08:10 02/23/19 08:10 02/23/19 07:49 02/23/19 08:10 Intake & Output 02/22/19 02/23/19 02/24/19 06:59 06:59 06:59 Intake Total 540 2370 Output Total 1800 2900 Balance -1260 -530 Weight 70 kg 70 kg General appearance: PRESENT: no acute distress, well-developed, well-nourished Head exam: PRESENT: atraumatic, normocephalic Eye exam: PRESENT: conjunctiva pink, EOMI, PERRLA. ABSENT: scleral icterus Ear exam: PRESENT: normal external ear exam Mouth exam: PRESENT: moist, tongue midline Neck exam: PRESENT: full ROM. ABSENT: carotid bruit, JVD, lymphadenopathy, thyromegaly Respiratory exam: PRESENT: decreased breath sounds Cardiovascular exam: PRESENT: RRR. ABSENT: diastolic murmur, rubs, systolic murmur Pulses: PRESENT: normal dorsalis pedis pul, +2 pedal pulses bilateral GI/Abdominal exam: PRESENT: normal bowel sounds, soft. ABSENT: distended, guarding, mass, organolmegaly, rebound, tenderness Rectal exam: PRESENT: deferred Extremities exam: PRESENT: full ROM Musculoskeletal exam: PRESENT: ambulatory Neurological exam: PRESENT: alert, awake, oriented to person, oriented to place, reflexes normal, CN II-XII grossly intact Psychiatric exam: PRESENT: appropriate affect, normal mood. ABSENT: homicidal ideation, suicidal ideation Skin exam: PRESENT: dry, intact, warm. ABSENT: cyanosis, rash Results Laboratory Results: 02/23/19 06:04 02/23/19 06:04 02/23/19 02/23/19 06:04 06:04 WBC 10.6 H RBC 4.06 Hgb 12.5 Hct 37.8 MCV 93 MCH 30.9 MCHC 33.1 RDW 16.8 H Plt Count 140 L Seg Neutrophils % Not Reportable Lymphocytes % Not Reportable Monocytes % Not Reportable Eosinophils % Not Reportable Basophils % Not Reportable Absolute Neutrophils Not Reportable Absolute Lymphocytes Not Reportable Absolute Monocytes Not Reportable Absolute Eosinophils Not Reportable Absolute Basophils Not Reportable Sodium 140.7 Potassium 3.9 Chloride 111 H Carbon Dioxide 23 Anion Gap 7 BUN 14 Creatinine 0.55 Est GFR ( Amer) > 60 Est GFR (Non-Af Amer) > 60 Glucose 112 H Calcium 7.9 L 02/21/19 02/21/19 02/21/19 16:32 16:32 21:51 Creatine Kinase 28 L 25 L CK-MB (CK-2) 0.35 Troponin I 0.039 02/21/19 02/22/19 02/22/19 21:51 04:00 04:00 Creatine Kinase 27 L CK-MB (CK-2) 0.49 0.76 Troponin I 0.036 0.021 Impressions: Chest X-Ray 02/21/19 15:15 IMPRESSION: NO ACUTE RADIOGRAPHIC FINDING IN THE CHEST. Qualifiers - * PATIENT BEING DISCHARGED WITH ANY OF THE FOLLOWING DIAGNOSIS: No Acute Heart Failure Is this a Heart Failure Patient?: No Follow-up Appointment scheduled within 7 days?: Yes Plan Discharge Plan: She will be discharged home after oxygen is arranged and home health physical therapy she will be put on broad-spectrum p.o. antibiotics for probation of COPD and a urinary tract infection. She will be put on home oral steroids for 7 days nebulizer treatments 3 times a day we will add Symbicort 160/4.51 puff twice daily, flutter valve and she will be seen by me in 1 week. Time Spent: Less than 30 Minutes
[2019-02-23] MEDS: FLUTICASONE/VILANTEROL 200-25 MCG/DOSE IH SCH (09:19)
[2019-02-23] MEDS: GUAIFENESIN 600 MG TABLET.SA PO SCH (09:19)
[2019-02-23] MEDS: DOCUSATE SODIUM 100 MG CAPSULE PO SCH (09:19)
[2019-02-23] MEDS ORDERED: PREDNISONE 20 MG TABLET PO SCH (10:00)
[2019-02-23 13:11] VITALS: BP 140/78
[2019-02-23] MEDS ORDERED: AMOXICILLIN TR/POT CLAVULANATE 500-125 MG TAB PO SCH (14:00)
== END 2019-02-23 14:45 | disposition home or self-care (01) | DRG 191 ==
LOC: 4N 14:46
PROVIDERS: ADMIT Internal Medicine; ATTEND Internal Medicine
PROC: 3E0F3GC Introduction of Other Therapeutic Substance into Respiratory Tract, Percutaneous Approach (ICD-10-PCS; principal; 2019-02-21)
DX: J44.1 Chronic obstructive pulmonary disease with (acute) exacerbation (principal); R65.10 Systemic inflammatory response syndrome (SIRS) of non-infectious origin without acute organ dysfunction; N30.00 Acute cystitis without hematuria; F01.50 Vascular dementia, unspecified severity, without behavioral disturbance, psychotic disturbance, mood disturbance, and anxiety; R63.0 Anorexia; I12.9 Hypertensive chronic kidney disease with stage 1 through stage 4 chronic kidney disease, or unspecified chronic kidney disease; N18.9 Chronic kidney disease, unspecified; R09.02 Hypoxemia; E78.5 Hyperlipidemia, unspecified; M19.90 Unspecified osteoarthritis, unspecified site; E53.8 Deficiency of other specified B group vitamins; M81.0 Age-related osteoporosis without current pathological fracture; Z77.110 Contact with and (suspected) exposure to air pollution; Z79.52 Long term (current) use of systemic steroids
CPT/HCPCS: 36415; 71045; 80048; 80053; 81001; 82550; 82553; 82803; 84484; 85025; 87040; 87070; 87086; 87205; 94640; 94667; 94668; J0456; J0696; J2920; J3490; J7030; J7060; J7512; J7620

== ENCOUNTER → 2019-05-01 | Outpatient (CLI) | payer MEDICARE, BC ==
--- NOTE | 2019-05-01 14:47 | RADIOLOGY REPORT (SQ) ---
EXAM DESCRIPTION: TIBIA FIBULA RIGHT COMPLETED DATE/TIME: 05/01/2019 2:16 pm REASON FOR STUDY: M79.604 PAIN IN RIGHT LEG M79.604 PAIN IN RIGHT LEG R42 DIZZINESS AND GIDDINESS COMPARISON: None. NUMBER OF VIEWS: Two views. TECHNIQUE: Two radiographic images acquired of the right tibia and fibula to include the knee and an kle in at least one projection. LIMITATIONS: None. FINDINGS: MINERALIZATION: Decreased. BONES: No acute fracture or dislocation. No worrisome bone lesions. Mild degenerative changes at th e knee and ankle. SOFT TISSUES: No obvious swelling or foreign body. OTHER: No other significant finding. IMPRESSION: NEGATIVE STUDY OF THE RIGHT TIBIA AND FIBULA. NO RADIOGRAPHIC EVIDENCE OF ACUTE INJURY. TECHNICAL DOCUMENTATION: JOB ID: [id number] [employer]- All Rights Reserved Reading location - IP/workstation name: [email or web address]
--- NOTE | 2019-05-02 06:54 | XCELERA REPORT ---
[address] [facility] [address] Lower Extremity Venous Evaluation Procedure: Color flow and duplex imaging of the veins of the right lower extremity as well as the left Common Femoral vein. Right Sided Venous Evaluation Normal vessel filling wall to wall, compression and augmentation as well as Colour flow down to the infrageniculate veins. Left Sided Venous Evaluation The left common femoral vein is fully compressible. Spontaneous and phasic flow is present in the left common femoral vein. Interpretation Summary No duplex evidence of DVT or obstruction in the right lower extremity nor in the left Common Femoral vein. Name: RADHA WASHINGTON Age: 88 yrs Gender: Female : [id number] Patient Status: Outpatient Patient Location: Study Date: 05/01/2019 02:58 PM Reason For Study: RLE PAIN Ordering Physician: REGIS MOLINA Performed By: Pura Claros : REGIS MOLINA > Vasyl Henderson
== END ==
LOC: SP 13:59
PROVIDERS: ATTEND Family Medicine Geriatric Medicine
DX: M79.604 Pain in right leg (principal); R42 Dizziness and giddiness
CPT/HCPCS: 93971

== ENCOUNTER → 2019-05-02 | Outpatient (CLI) | payer MEDICARE, BC ==
[2019-05-02 10:29] LABS: ABSOLUTE EOSINOPHILS # (AUTO) 0.1 10^3/uL (0.0-0.6); ABSOLUTE LYMPHOCYTES (AUTO) 1.6 10^3/uL (0.5-4.7); ABSOLUTE MONOCYTES (AUTO) 0.6 10^3/uL (0.1-1.4); ABSOLUTE NEUT (AUTO) 3.7 10^3/uL (1.7-8.2); BASOPHILS % (AUTO) 0.6 % (0-2); EOSINOPHILS % (AUTO) 2.3 % (0-6); HEMATOCRIT 42.8 % (36.0-47.0); MEAN CORPUSCULAR HEMOGLOBIN 31.1 pg (27.0-33.4); MEAN CORPUSCULAR HGB CONC 32.8 g/dL (32.0-36.0); MEAN CORPUSCULAR VOLUME 95 fl (80-97); MONOCYTES % (AUTO) 10.2 % (3-13); PLATELET COUNT 158 10^3/uL (150-450); RED CELL DISTRIBUTION WIDTH 14.8 % (11.5-14.0); SEGMENTED NEUTROPHILS % (AUTO) 59.9 % (42-78); TOTAL CELLS COUNTED % (AUTO) 100 %; WHITE BLOOD COUNT 6.1 10^3/uL (4.0-10.5)
== END ==
LOC: OD 09:35
PROVIDERS: ATTEND Family Medicine Geriatric Medicine
DX: T14.8XXA Other injury of unspecified body region, initial encounter (principal); X58.XXXA Exposure to other specified factors, initial encounter
CPT/HCPCS: 36415; 85025

== ENCOUNTER → 2019-09-21 | Outpatient (CLI) | payer MEDICARE, BC ==
[2019-09-21 11:11] LABS: ANION GAP 10 (5-19); BLOOD UREA NITROGEN 17 mg/dL (7-20); CALCIUM 9.4 mg/dL (8.4-10.2); CARBON DIOXIDE 26 mmol/L (22-30); CHLORIDE 106 mmol/L (98-107); GLUCOSE 89 mg/dL (75-110); IRON 112.6 ug/dL (37-170); POTASSIUM 4.6 mmol/L (3.6-5.0)
== END ==
LOC: OD 09:41
PROVIDERS: ATTEND Family Medicine
DX: D64.9 Anemia, unspecified (principal); R25.2 Cramp and spasm
CPT/HCPCS: 36415; 80048; 82306; 82607; 82728; 83540

== ENCOUNTER → 2020-07-16 | Outpatient (CLI) | payer MEDICARE, BC ==
[2020-07-16 10:00] LABS: ABSOLUTE EOSINOPHILS # (AUTO) 0.1 10^3/uL (0.0-0.6); ABSOLUTE LYMPHOCYTES (AUTO) 1.7 10^3/uL (0.5-4.7); ABSOLUTE MONOCYTES (AUTO) 0.6 10^3/uL (0.1-1.4); ABSOLUTE NEUT (AUTO) 3.6 10^3/uL (1.7-8.2); BASOPHILS % (AUTO) 0.6 % (0-2); EOSINOPHILS % (AUTO) 2.3 % (0-6); HEMATOCRIT 40.6 % (36.0-47.0); HEMOGLOBIN 13.9 g/dL (12.0-15.5); LYMPHOCYTES % (AUTO) 27.6 % (13-45); MEAN CORPUSCULAR HEMOGLOBIN 31.8 pg (27.0-33.4); MEAN CORPUSCULAR HGB CONC 34.3 g/dL (32.0-36.0); MEAN CORPUSCULAR VOLUME 93 fl (80-97); MONOCYTES % (AUTO) 10.2 % (3-13); PLATELET COUNT 170 10^3/uL (150-450); RED BLOOD COUNT 4.38 10^6/uL (3.72-5.28); RED CELL DISTRIBUTION WIDTH 15.3 % (11.5-14.0); SEGMENTED NEUTROPHILS % (AUTO) 59.3 % (42-78); TOTAL CELLS COUNTED % (AUTO) 100 %; WHITE BLOOD COUNT 6.1 10^3/uL (4.0-10.5)
[2020-07-16 10:19] LABS: ALBUMIN 3.8 g/dL (3.5-5.0); ALKALINE PHOSPHATASE 78 U/L (38-126); ANION GAP 8 (5-19); ASPARTATE AMINO TRANSFERASE 28 U/L (14-36); BILIRUBIN,DIRECT 0.2 mg/dL (0.0-0.4); BILIRUBIN,TOTAL 0.4 mg/dL (0.2-1.3); BLOOD UREA NITROGEN 19 mg/dL (7-20); CALCIUM 8.9 mg/dL (8.4-10.2); CARBON DIOXIDE 26 mmol/L (22-30); CHLORIDE 107 mmol/L (98-107); CHOLESTEROL 149.78 mg/dL (0-200); GLUCOSE 89 mg/dL (75-110); POTASSIUM 4.4 mmol/L (3.6-5.0); TOTAL PROTEIN 6.8 g/dL (6.3-8.2); TRIGLYCERIDES 90 mg/dL (<150)
[2020-07-16 10:31] LABS: DIRECT LDL 72 mg/dL (<100)
== END ==
LOC: OD 08:38
PROVIDERS: ATTEND Internal Medicine
DX: I12.9 Hypertensive chronic kidney disease with stage 1 through stage 4 chronic kidney disease, or unspecified chronic kidney disease (principal); N18.3 Chronic kidney disease, stage 3 (moderate); E78.5 Hyperlipidemia, unspecified; D64.9 Anemia, unspecified; N39.0 Urinary tract infection, site not specified
CPT/HCPCS: 36415; 80053; 80061; 82607; 84443; 85025; 87086; 87088